=== PATIENT | male | born 1985 | race Caucasian/White ===

== ENCOUNTER 2019-06-12 23:15 | Emergency (ER) ==
[2019-06-12] MEDS ORDERED: ASPIRIN 81 MG TABLET, CHEWABLE PO ONE (23:31)
[2019-06-12 23:42] LABS: ABSOLUTE BASOPHILS # (AUTO) 0.1 10^3/uL (0.0-0.2); ABSOLUTE EOSINOPHILS # (AUTO) 0.3 10^3/uL (0.0-0.6); ABSOLUTE LYMPHOCYTES (AUTO) 5.2 10^3/uL (0.5-4.7); ABSOLUTE MONOCYTES (AUTO) 1.5 10^3/uL (0.1-1.4); ABSOLUTE NEUT (AUTO) 5.4 10^3/uL (1.7-8.2); BASOPHILS % (AUTO) 1.1 % (0-2); EOSINOPHILS % (AUTO) 2.1 % (0-6); HEMATOCRIT 53.7 % (37.9-51.0); HEMOGLOBIN 18.1 g/dL (13.5-17.0); LYMPHOCYTES % (AUTO) 41.8 % (13-45); MEAN CORPUSCULAR HEMOGLOBIN 34.6 pg (27.0-33.4); MEAN CORPUSCULAR HGB CONC 33.7 g/dL (32.0-36.0); MEAN CORPUSCULAR VOLUME 103 fl (80-97); MONOCYTES % (AUTO) 11.7 % (3-13); PLATELET COUNT 363 10^3/uL (150-450); RED BLOOD COUNT 5.24 10^6/uL (4.35-5.55); RED CELL DISTRIBUTION WIDTH 18.6 % (11.5-14.0); SEGMENTED NEUTROPHILS % (AUTO) 43.3 % (42-78); TOTAL CELLS COUNTED % (AUTO) 100 %; WHITE BLOOD COUNT 12.4 10^3/uL (4.0-10.5)
[2019-06-12 23:56] LABS: ALBUMIN 4.4 g/dL (3.5-5.0); ALKALINE PHOSPHATASE 127 U/L (38-126); ANION GAP 14 (5-19); ASPARTATE AMINO TRANSFERASE 117 U/L (17-59); CALCIUM 9.1 mg/dL (8.4-10.2); CARBON DIOXIDE 21 mmol/L (22-30); CHLORIDE 108 mmol/L (98-107); CREATINE KINASE 207 U/L (55-170); GLUCOSE 194 mg/dL (75-110); POTASSIUM 4.2 mmol/L (3.6-5.0); TOTAL PROTEIN 7.5 g/dL (6.3-8.2)
[2019-06-13 00:07] LABS: BILIRUBIN,DIRECT 0.4 mg/dL (0.0-0.4); BILIRUBIN,TOTAL 0.4 mg/dL (0.2-1.3); CREATINE KINASE MB 0.51 ng/mL (<4.55); NEONATAL BILIRUBIN RESULT 0.1 mg/dL (0.1-1.1)
[2019-06-13 00:08] LABS: BLOOD UREA NITROGEN < 2 mg/dL (7-20)
[2019-06-13 00:09] LABS: TROPONIN I < 0.012 ng/mL
--- NOTE | 2019-06-13 07:59 | EKG REPORT ---
SEVERITY:- OTHERWISE NORMAL ECG - SINUS TACHYCARDIA : Confirmed by: Jensen Santacruz MD 13-Jun-2019 07:58:26
== END 2019-06-13 00:24 | disposition left against medical advice (07) ==
LOC: ER 23:15
DX: Z53.21 Procedure and treatment not carried out due to patient leaving prior to being seen by health care provider (principal)
CPT/HCPCS: 36415; 80053; 82550; 82553; 84484; 85025

== ENCOUNTER 2019-06-13 11:12 | Emergency (ER) | payer OTHER, BC ==
--- NOTE | 2019-06-13 12:08 | ER Document Report ---
ED Medical Screen (RME) - General Chief Complaint: Chest Wall Injury Stated Complaint: CHEST PAIN Time Seen by Provider: 06/13/19 11:29 Primary Care Provider: LORENZO BABCOCK PA-C [Primary Care Provider] - Follow up as needed Mode of Arrival: Ambulatory Information source: Patient Notes: This 34-year-old male presents to the emergency department with right-sided rib pain for the past 4 days. Patient reports he slipped in his garage and fell on his right side. Reports pain since that time. Heart rate is in the 120s patient is obviously hurting with difficulty breathing. Denies fever vomiting. Denies past medical history of any injury to the rib. I have greeted and performed a rapid initial assessment of this patient. A comprehensive ED assessment and evaluation of the patient, analysis of test results and completion of the medical decision making process will be conducted by additional ED providers. Dictation of this chart was performed using voice recognition software; therefore, there may be some unintended grammatical errors. TRAVEL OUTSIDE OF THE [place] IN LAST 30 DAYS: No - Related Data Allergies/Adverse Reactions: sertraline [From Zoloft] Allergy (Verified 06/13/19 11:13) Physical Exam - Vital signs Vitals: Temp Pulse Resp BP Pulse Ox 97.9 F 122 H 18 154/106 H 95 06/13/19 11:17 06/13/19 11:17 06/13/19 11:17 06/13/19 11:17 06/13/19 11:17 Course - Vital Signs Vital signs: Temp Pulse Resp BP Pulse Ox 97.9 F 118 H 16 137/99 H 95 06/13/19 12:08 06/13/19 12:08 06/13/19 13:01 06/13/19 13:01 06/13/19 13:01 - Laboratory Result Diagrams: 06/13/19 12:58 06/13/19 12:58 Laboratory results interpreted by me: 06/13/19 06/13/19 12:58 12:58 WBC 11.6 H Hgb 17.4 H Hct 51.2 H MCV 102 H MCH 34.7 H RDW 18.1 H BUN < 2 L Direct Bilirubin 0.5 H AST 107 H Doctor's Discharge - Discharge Referrals: LORENZO BABCOCK PA-C [Primary Care Provider] - Follow up as needed
--- NOTE | 2019-06-13 12:33 | RADIOLOGY REPORT (SQ) ---
EXAM DESCRIPTION: CHEST 2 VIEWS COMPLETED DATE/TIME: 06/13/2019 11:51 am REASON FOR STUDY: diff breathing, rib pain COMPARISON: None. EXAM PARAMETERS: NUMBER OF VIEWS: two views TECHNIQUE: Digital Frontal and Lateral radiographic views of the chest acquired. RADIATION DOSE: NA LIMITATIONS: none FINDINGS: LUNGS AND PLEURA: Right middle lobe collapse and consolidation is present. Superimposed p neumonia could not be excluded. Remainder of the lungs are well inflated and clear. No pleural effusion or pneumothorax. MEDIASTINUM AND HILAR STRUCTURES: No masses or contour abnormalities. HEART AND VASCULAR STRUCTURES: Heart normal size. No evidence for failure. BONES: No acute findings. HARDWARE: None in the chest. OTHER: No other significant finding. IMPRESSION: Right middle lobe collapse and consolidation TECHNICAL DOCUMENTATION: JOB ID: [id number] [employer]- All Rights Reserved Reading location - IP/workstation name: [email or web address]
[2019-06-13] MEDS ORDERED: ONDANSETRON HCL INJ/PF 4 MG/2 ML SDV IV ONE (12:47)
[2019-06-13] MEDS ORDERED: FENTANYL CITRATE INJ/PF 100 MCG/2 ML AMPUL IV ONE (12:47)
--- NOTE | 2019-06-13 12:47 | ER Document Report ---
ED General - General Chief Complaint: Chest Wall Injury Stated Complaint: CHEST PAIN Time Seen by Provider: 06/13/19 11:29 Primary Care Provider: LORENZO BABCOCK PA-C [Primary Care Provider] - Follow up in 3-5 days Mode of Arrival: Ambulatory Notes: Patient is a 34 year old male that presents to the emergency department for chief complaint of right chest wall pain. Patient states that he was in his garage on Monday, and slipped and fell and landed on his right ribs. He states since that time is been having significant pain associated with it, focally located on the right lateral ribs. He denies hitting his head or having any neck injury from his fall. He currently rates his pain as a 10 out of 10 describes as a constant ache that is worse with a deep breath. He denies any other injuries that he is aware of. Denies any pain in his limbs, denies any numbness, tingling or weakness in any extremity. Past Medical History: Hypertension, anxiety, depression Past Surgical History: Denies surgical history Social History: Admits to smoking, and daily alcohol consumption, denies illicit drug use. Family History: Reviewed and noncontributory for presenting illness Allergies: Reviewed, see documented allergy list. REVIEW OF SYSTEMS: Other than noted above, the 12 point review of systems was reviewed with the patient and were negative, all pertinent findings are included in the HPI. PHYSICAL EXAMINATION: Vital signs reviewed, nursing noted reviewed. GENERAL: Well-appearing, well-nourished and in no acute distress. HEAD: Atraumatic, normocephalic. EYES: Eyes appear normal, extraocular movements intact, sclera anicteric, conjunctiva are normal. ENT: nares patent, oropharynx clear without exudates. Moist mucous membranes. NECK: Normal range of motion, supple without lymphadenopathy LUNGs: Mild expiratory wheezing noted throughout all lung wallace, but no acute respiratory distress, there is noted to be right rib tenderness to palpation, without evidence of ecchymosis, step-off, or crepitus noted. HEART: Heart rate tachycardic, regular rhythm, no audible murmur ABDOMEN: Soft, nontender, normoactive bowel sounds. No rebound, guarding, or rigidity. No masses appreciated. EXTREMITIES: Nontender, good range of motion, no pitting or edema. NEUROLOGICAL: No focal neurological deficits. Moves all extremities spontaneously Motor and sensory grossly intact on exam. PSYCH: Normal mood, normal affect. SKIN: Warm, Dry, normal turgor, no rashes or lesions noted on exposed skin TRAVEL OUTSIDE OF THE [place] IN LAST 30 DAYS: No - Related Data Allergies/Adverse Reactions: sertraline [From Zoloft] Allergy (Verified 06/13/19 11:13) Past Medical History - General Information source: Patient - Social History Smoking Status: Current Every Day Smoker Family History: Reviewed & Not Pertinent Patient has suicidal ideation: No Patient has homicidal ideation: No Renal/ Medical History: Denies: Hx Peritoneal Dialysis Physical Exam - Vital signs Vitals: Temp Pulse Resp BP Pulse Ox 97.9 F 122 H 18 154/106 H 95 06/13/19 11:17 06/13/19 11:17 06/13/19 11:17 06/13/19 11:17 06/13/19 11:17 Course - Re-evaluation Re-evalutation: Patient seen and examined vital signs reviewed. Laboratory data and/or imaging were ordered as appropriate for the patient's presenting symptoms and complaint, with consideration of any critical or life threatening conditions that may be associated with their obtained history and exam as noted above. Patient was treated with IV fentanyl, and Zofran, and given DuoNeb breathing treatment Results were reviewed when available and demonstrated chest x-ray demonstrated right-sided infiltrate, but no fracture of the ribs, CT imaging was ordered, to further delineate findings seen on chest x-ray, there was some atelectasis in the right middle lobe, and a right fifth rib fracture, no pneumothorax. Atelectasis could be mild pulmonary contusion, versus strictly atelectasis from decreased deep breathing, over the past several days. Versus developing pneumonia from rib fracture. The patient was re-evaluated and was stable and improved, I feel the patient can be discharged, will send her home on antibiotics, incentive spirometry, given albuterol inhaler, which the patient was agreeable to, he was not hypoxic, no acute respiratory distress, overall appeared much improved. Evaluation was most consistent with right rib fracture, right middle lobe atelectasis Results were discussed with the patient at this point, after careful consideration I feel that that patient can be discharged from the emergency department, the patient was educated treatments and reasons to return to the emergency department based on their presumed diagnosis as noted above, they were advised to followup with a primary care physician in 2-3 days. Patient was agreeable to plan of care. *Note is created using voice recognition software and may contain spelling, syntax or grammatical errors. Laboratory 06/13/19 06/13/19 12:58 12:58 WBC 11.6 H RBC 5.01 Hgb 17.4 H Hct 51.2 H MCV 102 H MCH 34.7 H MCHC 34.0 RDW 18.1 H Plt Count 330 Seg Neutrophils % 57.3 Lymphocytes % 27.7 Monocytes % 12.3 Eosinophils % 1.4 Basophils % 1.3 Absolute Neutrophils 6.7 Absolute Lymphocytes 3.2 Absolute Monocytes 1.4 Absolute Eosinophils 0.2 Absolute Basophils 0.2 Sodium 143.8 Potassium 4.5 Chloride 106 Carbon Dioxide 24 Anion Gap 14 BUN < 2 L Creatinine 0.80 Est GFR ( Amer) > 60 Est GFR (Non-Af Amer) > 60 Glucose 78 Calcium 9.5 Total Bilirubin 0.6 Direct Bilirubin 0.5 H Neonat Total Bilirubin Not Reportable Neonat Direct Bilirubin Not Reportable Neonat Indirect Bili Not Reportable AST 107 H ALT 99 Alkaline Phosphatase 122 Total Protein 7.4 Albumin 4.3 Chest X-Ray 06/13/19 11:33 IMPRESSION: Right middle lobe collapse and consolidation Chest CT 06/13/19 12:47 IMPRESSION: Nondisplaced right anterior-lateral 5th rib fracture. Right middle lobe atelectasis. - Vital Signs Vital signs: Temp Pulse Resp BP Pulse Ox 97.9 F 118 H 21 H 129/93 H 92 06/13/19 12:08 06/13/19 12:08 06/13/19 15:01 06/13/19 15:01 06/13/19 15:01 - Laboratory Result Diagrams: 06/13/19 12:58 06/13/19 12:58 Laboratory results interpreted by me: 06/13/19 06/13/19 12:58 12:58 WBC 11.6 H Hgb 17.4 H Hct 51.2 H MCV 102 H MCH 34.7 H RDW 18.1 H BUN < 2 L Direct Bilirubin 0.5 H AST 107 H Discharge - Discharge Clinical Impression: Right rib fracture Qualifiers: Encounter type: initial encounter Rib fracture type: single rib Fracture type: closed Qualified Code(s): S22.31XA - Fracture of one rib, right side, initial encounter for closed fracture Right pulmonary contusion Qualifiers: Encounter type: initial encounter Qualified Code(s): S27.321A - Contusion of lung, unilateral, initial encounter Condition: Stable Disposition: HOME, SELF-CARE Instructions: Rib Injuries and Fractures ([facility]) Additional Instructions: Please take the entire course of antibiotics as prescribed, starting today, please take the prescribed pain medication only if needed, and the anti- inflammatory twice daily with meals, please use the incentive spirometer, every 10 minutes, throughout the day to help increase breathing, prevent pneumonia, or worsening lung issues. Prescriptions: RX: Doxycycline Hyclate 100 mg PO BID #14 capsule RX: Naproxen [Naprosyn] 500 mg PO BID #30 tablet Oxycodone HCl/Acetaminophen [Percocet 5-325 mg Tablet] 1 tab PO ASDIR PRN #15 tab PRN Reason: rib pain Referrals: LORENZO BABCOCK PA-C [Primary Care Provider] - Follow up in 3-5 days
[2019-06-13 13:29] LABS: ABSOLUTE BASOPHILS # (AUTO) 0.2 10^3/uL (0.0-0.2); ABSOLUTE EOSINOPHILS # (AUTO) 0.2 10^3/uL (0.0-0.6); ABSOLUTE LYMPHOCYTES (AUTO) 3.2 10^3/uL (0.5-4.7); ABSOLUTE MONOCYTES (AUTO) 1.4 10^3/uL (0.1-1.4); ABSOLUTE NEUT (AUTO) 6.7 10^3/uL (1.7-8.2); BASOPHILS % (AUTO) 1.3 % (0-2); EOSINOPHILS % (AUTO) 1.4 % (0-6); HEMATOCRIT 51.2 % (37.9-51.0); HEMOGLOBIN 17.4 g/dL (13.5-17.0); LYMPHOCYTES % (AUTO) 27.7 % (13-45); MEAN CORPUSCULAR HEMOGLOBIN 34.7 pg (27.0-33.4); MEAN CORPUSCULAR VOLUME 102 fl (80-97); MONOCYTES % (AUTO) 12.3 % (3-13); PLATELET COUNT 330 10^3/uL (150-450); RED BLOOD COUNT 5.01 10^6/uL (4.35-5.55); RED CELL DISTRIBUTION WIDTH 18.1 % (11.5-14.0); SEGMENTED NEUTROPHILS % (AUTO) 57.3 % (42-78); TOTAL CELLS COUNTED % (AUTO) 100 %; WHITE BLOOD COUNT 11.6 10^3/uL (4.0-10.5)
[2019-06-13] MEDS ORDERED: IPRATROPIUM/ALBUTEROL 0.5-2.5 MG/3 ML AMPUL NEB ONE (13:29)
[2019-06-13 13:34] LABS: ALBUMIN 4.3 g/dL (3.5-5.0); ALKALINE PHOSPHATASE 122 U/L (38-126); ANION GAP 14 (5-19); ASPARTATE AMINO TRANSFERASE 107 U/L (17-59); BILIRUBIN,DIRECT 0.5 mg/dL (0.0-0.4); BILIRUBIN,TOTAL 0.6 mg/dL (0.2-1.3); BLOOD UREA NITROGEN < 2 mg/dL (7-20); CALCIUM 9.5 mg/dL (8.4-10.2); CARBON DIOXIDE 24 mmol/L (22-30); CHLORIDE 106 mmol/L (98-107); GLUCOSE 78 mg/dL (75-110); POTASSIUM 4.5 mmol/L (3.6-5.0); TOTAL PROTEIN 7.4 g/dL (6.3-8.2)
--- NOTE | 2019-06-13 14:36 | RADIOLOGY REPORT (SQ) ---
EXAM DESCRIPTION: CT CHEST WITH COMPLETED DATE/TIME: 06/13/2019 2:09 pm REASON FOR STUDY: right chest pain, injury COMPARISON: None. TECHNIQUE: CT scan of the chest performed using helical scanning technique with dynamic intravenous contrast injection. Images reviewed with lung, soft tissue and bone windows. Reconstructed coronal and sagittal MPR and MIP images reviewed. All images stored on PACS. All CT scanners at this facility use dose modulation, iterative reconstruction, and/or weight based d osing when appropriate to reduce radiation dose to as low as reasonably achievable (ALARA). [facility]: Dose Right [facility]: CareDose [facility]: Dose Right [facility]: Teradose 4D [facility]: Adelphic Mobile CONTRAST TYPE AND DOSE: contrast/concentration: Isovue 350.00 mg/ml; Total Contrast Delivered: 80.0 ml; Total Saline Delivered: 39.7 ml RENAL FUNCTION: GFR > 60. RADIATION DOSE: CT Rad equipment meets quality standard of care and radiation dose reduction techniq ues were employed. CTDIvol: 14.8 mGy. DLP: 579 mGy-cm. . LIMITATIONS: None. FINDINGS: LUNGS AND PLEURA: Right middle lobe atelectasis. No pneumothorax. No effusions. HILAR AND MEDIASTINAL STRUCTURES: No identified masses or abnormal nodes. HEART AND VASCULAR STRUCTURES: No aneurysm or dissection. No central pulmonary emboli. No pericardi al effusion. HARDWARE: None in the chest. UPPER ABDOMEN: No acute findings. Fatty liver. Small calcified gallstones. Limited exam. THYROID AND OTHER SOFT TISSUES: No masses. No adenopathy. BONES: Nondisplaced right anterior-lateral 5th rib fracture. OTHER: No other significant finding. IMPRESSION: Nondisplaced right anterior-lateral 5th rib fracture. Right middle lobe atelectasis. TECHNICAL DOCUMENTATION: JOB ID: [id number] Quality ID # [id number]: Final reports with documentation of one or more dose reduction techniques (e.g., Au tomated exposure control, adjustment of the mA and/or kV according to patient size, use of iterative reconstruction technique) 2010 [employer]- All Rights Reserved Reading location - IP/workstation name: [email or web address]
[2019-06-13] MEDS ORDERED: ALBUTEROL SULFATE HFA (90 MCG/PUFF) 8 GM MDI (1 MDI/ER DISP) IH ONE (15:13)
[2019-06-13 15:40] VITALS: BP 129/93
== END 2019-06-13 15:46 | disposition home or self-care (01) ==
LOC: ER 11:12
DX: S22.31XA Fracture of one rib, right side, initial encounter for closed fracture (principal); S27.321A Contusion of lung, unilateral, initial encounter; R07.81 Pleurodynia; W01.0XXA Fall on same level from slipping, tripping and stumbling without subsequent striking against object, initial encounter; I10 Essential (primary) hypertension; F17.200 Nicotine dependence, unspecified, uncomplicated
CPT/HCPCS: 94640; 99284; 96374; 96375; 36415; 85025; 80053; 71046; 71260; J3010; J2405; J3490; J7620

== ENCOUNTER 2019-11-24 12:20 | Inpatient (IN) | payer OTHER, BC ==
[2019-11-24] MEDS ORDERED: THIAMINE HCL 100 MG, FOLIC ACID 1 MG in NORMAL SALINE 250 ML IV ONE (12:57)
[2019-11-24] MEDS ORDERED: LORAZEPAM INJ 2 MG/1 ML VIAL IV ONE ×2 (12:57→19:45)
[2019-11-24] MEDS ORDERED: ONDANSETRON HCL INJ/PF 4 MG/2 ML SDV IV ONE (12:57)
[2019-11-24] MEDS ORDERED: NORMAL SALINE 1000 ML 1,000 ML IV ONE (12:57)
--- NOTE | 2019-11-24 13:00 | ER Document Report ---
ED Medical Screen (RME) - General Chief Complaint: Foot Pain Stated Complaint: RIGHT FOOT PAIN Time Seen by Provider: 11/24/19 12:53 Primary Care Provider: LORENZO BABCOCK PA-C [Primary Care Provider] - Follow up as needed TRAVEL OUTSIDE OF THE [place] IN LAST 30 DAYS: No - HPI Notes: 11/24/19 12:57 Patient is a 34-year-old male with history of alcohol dependence presents for 2 concerns. The primary concern today is right ankle and right lateral lower leg pain status post a couple days ago. Patient states that he was on a cupboard and stepped down and injured ankle area. He has had pain and swelling as well as bruising since then. He did not injure any other part of his body. Patient states that he is also an alcoholic who stopped drinking for the past 2 days to try to detox himself, but has had nausea/aches and anxiety associated. He did drink 2 "tall boys" this morning to help try to curb some of the symptoms. Patient is looking for help with this, but does not want to be placed somewhere for detox as he cannot leave his kids. No fever. No chest pain or shortness of breath. I have treated and performed a rapid initial assessment of this patient. A comprehensive ED assessment and evaluation of the patient, analysis of test results and completion of medical decision making process will be conducted by additional ED providers. PHYSICAL EXAMINATION: GENERAL: Well-appearing, well-nourished and in no acute distress. A&Ox4. Answers questions appropriately. Rt ankle: + ecchymosis/swelling/tenderness b/l. + tenderness near fibular head. No foot tenderness noted. N/v intact distal. Psych: anxious Heart: RRR, but tachy Neuro: cranial nerves grossly intact. - Related Data Allergies/Adverse Reactions: sertraline [From Zoloft] Allergy (Verified 11/24/19 12:50) Past Medical History - Past Medical History Cardiac Medical History: Reports: Hx Hypertension Renal/ Medical History: Denies: Hx Peritoneal Dialysis Physical Exam - Vital signs Vitals: Temp Pulse Resp BP Pulse Ox 98.1 F 133 H 18 189/115 H 97 11/24/19 12:28 11/24/19 12:28 11/24/19 12:28 11/24/19 12:28 11/24/19 12:28 Course - Vital Signs Vital signs: Temp Pulse Resp BP Pulse Ox 98.1 F 133 H 18 189/115 H 97 11/24/19 12:28 11/24/19 12:28 11/24/19 12:28 11/24/19 12:28 11/24/19 12:28 Doctor's Discharge - Discharge Referrals: LORENZO BABCCOK PA-C [Primary Care Provider] - Follow up as needed
[2019-11-24 13:31] LABS: ABSOLUTE BASOPHILS # (AUTO) 0.1 10^3/uL (0.0-0.2); ABSOLUTE EOSINOPHILS # (AUTO) 0.1 10^3/uL (0.0-0.6); ABSOLUTE LYMPHOCYTES (AUTO) 1.9 10^3/uL (0.5-4.7); ABSOLUTE MONOCYTES (AUTO) 1.1 10^3/uL (0.1-1.4); ABSOLUTE NEUT (AUTO) 5.9 10^3/uL (1.7-8.2); BASOPHILS % (AUTO) 0.9 % (0-2); EOSINOPHILS % (AUTO) 0.9 % (0-6); HEMATOCRIT 52.4 % (37.9-51.0); HEMOGLOBIN 18.5 g/dL (13.5-17.0); MEAN CORPUSCULAR HEMOGLOBIN 35.7 pg (27.0-33.4); MEAN CORPUSCULAR HGB CONC 35.4 g/dL (32.0-36.0); MEAN CORPUSCULAR VOLUME 101 fl (80-97); RED BLOOD COUNT 5.19 10^6/uL (4.35-5.55); RED CELL DISTRIBUTION WIDTH 16.3 % (11.5-14.0); SEGMENTED NEUTROPHILS % (AUTO) 65.2 % (42-78); TOTAL CELLS COUNTED % (AUTO) 100 %
[2019-11-24 13:32] LABS: APPEARANCE,URINE CLEAR; BILIRUBIN,URINE NEGATIVE (NEGATIVE); COLOR,URINE YELLOW; GLUCOSE, URINE 150 mg/dL (NEGATIVE); KETONES,URINE NEGATIVE (NEGATIVE); LEUKOCYTE ESTERASE,URINE NEGATIVE (NEGATIVE); NITRITE,URINE NEGATIVE (NEGATIVE); PROTEIN,URINE NEGATIVE (NEGATIVE); URINE SPECIFIC GRAVITY 1.002; UROBILINOGEN,URINE NEGATIVE mg/dL (<2.0)
[2019-11-24 13:45] LABS: ALBUMIN 4.2 g/dL (3.5-5.0); ALKALINE PHOSPHATASE 155 U/L (38-126); ANION GAP 16 (5-19); ASPARTATE AMINO TRANSFERASE 232 U/L (17-59); BILIRUBIN,DIRECT 0.9 mg/dL (0.0-0.4); BLOOD UREA NITROGEN 7 mg/dL (7-20); CALCIUM 9.8 mg/dL (8.4-10.2); CARBON DIOXIDE 24 mmol/L (22-30); CHLORIDE 99 mmol/L (98-107); GLUCOSE 152 mg/dL (75-110); TOTAL PROTEIN 7.9 g/dL (6.3-8.2)
[2019-11-24 13:47] LABS: ACETAMINOPHEN < 10 ug/mL (10-30); SALICYLATE < 1.0 mg/dL (2.0-20.0)
[2019-11-24 13:50] LABS: PLATELET COUNT 136 10^3/uL (150-450)
[2019-11-24 13:55] LABS: URINE AMPHETAMINES SCREEN NEGATIVE; URINE BARBITURATES SCREEN NEGATIVE; URINE BENZODIAZEPINES SCREEN NEGATIVE; URINE COCAINE SCREEN NEGATIVE; URINE MARIJUANA (THC) SCREEN NEGATIVE; URINE METHADONE SCREEN NEGATIVE; URINE PHENCYCLIDINE SCREEN NEGATIVE
--- NOTE | 2019-11-24 14:09 | RADIOLOGY REPORT (SQ) ---
EXAM DESCRIPTION: ANKLE RIGHT COMPLETE COMPLETED DATE/TIME: 11/24/2019 1:55 pm REASON FOR STUDY: pain s/p injury, + swelling/ecchymosis b/l COMPARISON: None. NUMBER OF VIEWS: Three views. TECHNIQUE: AP, lateral, and oblique radiographic images acquired of the right ankle. LIMITATIONS: None. FINDINGS: MINERALIZATION: Normal. BONES: Nondisplaced fracture of the medial malleolus. JOINTS: No effusions. SOFT TISSUES: No soft tissue swelling. No foreign body. OTHER: No other significant finding. IMPRESSION: Fracture medial malleolus. TECHNICAL DOCUMENTATION: JOB ID: [id number] [employer]- All Rights Reserved Reading location - IP/workstation name: [email or web address]
--- NOTE | 2019-11-24 14:09 | RADIOLOGY REPORT (SQ) ---
EXAM DESCRIPTION: TIBIA FIBULA RIGHT COMPLETED DATE/TIME: 11/24/2019 1:55 pm REASON FOR STUDY: pain near fibular head COMPARISON: None. NUMBER OF VIEWS: Two views. TECHNIQUE: Two radiographic images acquired of the right tibia and fibula to include the knee and an kle in at least one projection. LIMITATIONS: None. FINDINGS: MINERALIZATION: Normal. BONES: Spiral fracture of the proximal fibular shaft. Nondisplaced fracture of the medial malleolus. SOFT TISSUES: No obvious swelling or foreign body. OTHER: No other significant finding. IMPRESSION: Maisonneuve fracture. TECHNICAL DOCUMENTATION: JOB ID: [id number] [employer]- All Rights Reserved Reading location - IP/workstation name: [email or web address]
[2019-11-24] MEDS: IBUPROFEN 800 MG TABLET PO ONE ×2 (14:11→14:19)
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
[2019-11-24] MEDS ORDERED: TEMAZEPAM 15 MG CAPSULE PO PRN (15:44)
[2019-11-24] MEDS ORDERED: DIAZEPAM INJ 10 MG/2 ML DISP.SYRIN IV PRN (15:49)
[2019-11-24] MEDS: HYDRALAZINE HCL INJ/PF 20 MG/1 ML SDV IV PRN ×2 (16:00→16:35)
--- NOTE | 2019-11-24 16:15 | PDOC H&P ---
History of Present Illness Admission Date/PCP: 11/24/19 15:40 [facility] History of Present Illness: FANG UPTON is a 34 year old male past medical history of PTSD, TBI, hypertension, EtOH and tobacco abuse presenting to ED complaining of right lower extremity pain. Patient is stating about 2 days ago he fell off a ladder ever since he has developed right lower extremity pain swelling and tenderness. Stating that his right knee gave out and he fell, denies any chest pain, palpitation, lightheadedness, before the fall or any syncope, presyncope or convulsions after the fall. Denies sustaining any other trauma besides right lower extremity. Patient has history of severe EtOH abuse and has been admitted to rehab before denies any history of DT or hospitalization for alcohol withdrawal. Currently patient is a daily drinker, drinks multiple "tall boys" a day, and has been drinking excessively ever since hurting his leg. He is also complaining of mild shortness of breath and nausea denies any headache, numbness tingling or any focal neurological deficits, chest pain, abdo tim pain, vomiting, diarrhea, constipation or any urinary symptoms, denies any formication or any auditory or visual hallucinations. In ED he was found to be very hypertensive, dehydrated, with mild elevated LFTs and blood alcohol level of 188. Right lower extremity x-ray showed spiral fracture of mid fibula and medial malleolar fracture. Hospitalist was consulted for admission. Past Medical History Cardiac Medical History: Reports: Hypertension Social History Lives with: Family Smoking Status: Current Every Day Smoker Family History Family History: Reviewed & Not Pertinent Parental Family History Reviewed: Yes Children Family History Reviewed: Yes Sibling(s) Family History Reviewed.: Yes Medication/Allergy Home Medications: Alprazolam 0.25 mg PO DAILYP PRN MDD 0.5 MG 11/24/19 Zolpidem Tartrate [Ambien 5 mg Tablet] 5 mg PO HSP PRN 11/24/19 Allergies/Adverse Reactions: sertraline [From Zoloft] Allergy (Verified 11/24/19 12:50) Review of Systems Review of Systems: as per hpi Physical Exam Vital Signs: Temp Pulse Resp BP Pulse Ox 98.1 F 133 H 20 180/126 H 98 11/24/19 12:28 11/24/19 12:28 11/24/19 13:57 11/24/19 14:00 11/24/19 14:01 Intake & Output 11/23/19 11/24/19 11/25/19 06:59 06:59 06:59 Weight 99.5 kg General appearance: PRESENT: mild distress, obese, well-developed, well- nourished Respiratory exam: PRESENT: prolonged expiratory phas, wheezes. ABSENT: rales, rhonchi Cardiovascular exam: PRESENT: RRR. ABSENT: diastolic murmur, rubs, systolic murmur GI/Abdominal exam: PRESENT: normal bowel sounds, soft. ABSENT: distended, guarding, mass, organolmegaly, rebound, tenderness Musculoskeletal exam: PRESENT: tenderness - Right lower extremity below the knee diffuse swelling, ecchymosis over the medial malleolus, exquisitely tender below the knee to the ankle, vascularly intact. Neurological exam: PRESENT: alert, awake, oriented to person, oriented to place, oriented to time, oriented to situation, CN II-XII grossly intact. ABSENT: motor sensory deficit Psychiatric exam: PRESENT: anxious, appropriate affect Results Laboratory Results: 11/24/19 13:13 11/24/19 13:13 11/24/19 11/24/19 11/24/19 13:13 13:13 13:13 WBC 9.0 RBC 5.19 Hgb 18.5 H Hct 52.4 H MCV 101 H MCH 35.7 H MCHC 35.4 RDW 16.3 H Plt Count 136 L Seg Neutrophils % 65.2 Sodium 138.9 Potassium 4.0 Chloride 99 Carbon Dioxide 24 Anion Gap 16 BUN 7 Creatinine 0.88 Est GFR ( Amer) > 60 Glucose 152 H Calcium 9.8 Total Bilirubin 3.0 H AST 232 H Alkaline Phosphatase 155 H Total Protein 7.9 Albumin 4.2 Urine Color YELLOW Urine Appearance CLEAR Urine pH 6.0 Ur Specific [place] 1.002 Urine Protein NEGATIVE Urine Glucose (UA) 150 H Urine Ketones NEGATIVE Urine Blood NEGATIVE Urine Nitrite NEGATIVE Ur Leukocyte Esterase NEGATIVE Urine RBC (Auto) 0 Impressions: Ankle X-Ray 11/24/19 12:56 IMPRESSION: Fracture medial malleolus. Tibia/Fibula X-Ray 11/24/19 12:56 IMPRESSION: Maisonneuve fracture. Assessment and Plan - Diagnosis (1) Alcohol withdrawal Qualifiers: Complication of substance-induced condition: uncomplicated Qualified Code(s): F10.230 - Alcohol dependence with withdrawal, uncomplicated Is this a current diagnosis for this admission?: Yes Plan: CIWA score of 14. EtOH level 188. Patient very anxious tachypneic, hypertensive and tachycardic. Does not seem to be in DT at the moment. Admit to IMCU, seizure, fall, aspiration precautions. Scheduled and PRN benzodiazepines. Folic acid and thiamine supplementation. (2) Hypertension Is this a current diagnosis for this admission?: Yes Plan: Untreated hypertension. Presenting with systolic BP of 180s. History of untreated hypertension. Likely exacerbated due to active alcohol withdrawal. Admit to telemetry, PRN IV hydralazine and metoprolol. Restart home meds. Dismissed as needed. Outpatient PCP follow-up. (3) PTSD (post-traumatic stress disorder) Is this a current diagnosis for this admission?: Yes Plan: Denies any suicidal homicidal ideation. Supportive measures. Psychiatry consulted. Pending recommendations. (4) TBI (traumatic brain injury) Qualifiers: Encounter type: initial encounter Is this a current diagnosis for this admission?: Yes Plan: Supportive measures. (5) Tobacco abuse Is this a current diagnosis for this admission?: Yes Plan: Counseled on quitting. NicoDerm patch provided. (6) COPD (chronic obstructive pulmonary disease) Is this a current diagnosis for this admission?: Yes Plan: Current heavy smoker. Non-oxygen dependent. Expiratory wheezing on physical examination. Supplemental oxygen, duo nebs, LABA, LABA. Outpatient PCP and pulmonology follow-up. (7) Obesity Qualifiers: Obesity classification: adult class 1 (BMI 30 - 34.9) Is this a current diagnosis for this admission?: Yes Plan: Diet and lifestyle modification recommended. Will check TSH. (8) Elevated liver enzymes Is this a current diagnosis for this admission?: Yes Plan: Denies any history of hepatitis. This is likely to EtOH abuse. Platelets 136, AST 232, ALT 135, alkaline phosphatase 155. Not sure if patient has underlying cirrhosis or hepatic steatosis. We will check on her. Obtain hepatitis panel. Right upper quadrant ultrasound. Liver chemistries tomorrow. Monitor for bleeding. (9) Tibia/fibula fracture Qualifiers: Encounter type: initial encounter Is this a current diagnosis for this admission?: Yes Plan: Traumatic fracture. Neurovascularly intact. Supportive measures. Orthopedic surgery consulted.
[2019-11-24] MEDS: THIAMINE HCL 100 MG TABLET PO SCH (16:34)
[2019-11-24] MEDS: FOLIC ACID 1 MG TABLET PO SCH (16:34)
[2019-11-24 17:09] LABS: FREE T4 (FREE THYROXINE) 0.97 ng/dL (0.78-2.19)
[2019-11-24 17:23] LABS: THYROID STIMULATING HORMONE 1.39 uIU/mL (0.47-4.68)
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
[2019-11-24] MEDS ORDERED: NORMAL SALINE 1000 ML 1,000 ML with POTASSIUM CHLORIDE 20 MEQ, MAGNESIUM SULFATE 8 MEQ,... IV SCH ×5 (18:00)
[2019-11-24] MEDS: LEVALBUTEROL HCL NEB 0.63 MG/3 ML AMPUL NEB SCH ×2 (18:23→20:35)
--- NOTE | 2019-11-24 18:32 | EKG REPORT ---
SEVERITY:- BORDERLINE ECG - SINUS TACHYCARDIA PROBABLE LEFT ATRIAL ABNORMALITY : Confirmed by: Alena Donnelly MD 24-Nov-2019 18:32:11
--- NOTE | 2019-11-24 18:52 | PDOC CONSULTATION ---
Consultation Consult Date: 11/24/19 Provider Consulted: EMMIE KELLY JR History of Present Illness Admission Date/PCP: 11/24/19 15:40 [facility] History of Present Illness: FANG UPTON is a 34 year old male who fell off of a ladder 2 days ago twisting his right ankle and resulting in severe pain and inability to ambulate and subsequently presented to the emergency department where he was diagnosed with a ankle fracture. Additionally he is having symptoms of withdrawal from alcohol abuse and was admitted to the hospitalist service for medical management. He reports the pain in the ankle is a 6 out of 10, worse with any motion, improved with rest, improved with pain medication. Pain is aching in nature, he denies associated injury. He denies head injury or loss of consciousness. He denies lower extremity neurologic symptoms including sensation or motor loss. Past Medical History Cardiac Medical History: Reports: Hyperlipidema, Hypertension Pulmonary Medical History: Reports: Pneumonia Psychiatric Medical History: Reports: Alcohol Dependency, Depression Social History Lives with: Family Smoking Status: Current Every Day Smoker Cigarettes Packs Per Day: 1 Electronic Cigarette use?: No Number of Years Smokin Last Time Smoked: today Frequency of Alcohol Use: Heavy Hx Recreational Drug Use: Yes Drugs: Marijuana Hx Prescription Drug Abuse: Yes - Advance Directive Resuscitation Status: Full Code Family History Family History: Reviewed & Not Pertinent Parental Family History Reviewed: No Children Family History Reviewed: NA Sibling(s) Family History Reviewed.: NA Medication/Allergy Home Medications: Alprazolam 0.25 mg PO DAILYP PRN MDD 0.5 MG 11/24/19 Amlodipine 11/24/19 Hctz 11/24/19 Zolpidem Tartrate [Ambien 5 mg Tablet] 5 mg PO HSP PRN 11/24/19 Allergies/Adverse Reactions: sertraline [From Zoloft] Allergy (Verified 11/24/19 12:50) Review of Systems Review of Systems: Constitutional: ABSENT: anorexia, positive: Chills, rigors, malaise Cardiovascular: ABSENT: chest pain Respiratory: ABSENT: dyspnea Gastrointestinal: ABSENT: vomiting Genitourinary: ABSENT: dysuria Integumentary: ABSENT: rash Neurological: ABSENT: confusion, memory loss, numbness Psychiatric: ABSENT: hallucinations Hematologic/Lymphatic: ABSENT: easy bleeding All negative as above aside from that reported in the HPI and the following: Right ankle pain, pain also at the proximal lateral knee. Physical Exam Vital Signs: Temp Pulse Resp BP Pulse Ox 98.1 F 133 H 16 160/106 H 98 11/24/19 12:28 11/24/19 12:28 11/24/19 17:01 11/24/19 17:00 11/24/19 17:01 Intake & Output 11/23/19 11/24/19 11/25/19 06:59 06:59 06:59 Intake Total 1251.2 Balance 1251.2 Weight 99.5 kg Physical Exam: General appearance: PRESENT: no acute distress, cooperative, well-nourished, flushed in appearance, mild tremor present. Head exam: PRESENT: atraumatic, normocephalic Eye exam: PRESENT: EOMI Ear exam: PRESENT: normal external ear exam Mouth exam: PRESENT: neck supple Neck exam: ABSENT: tracheal deviation Respiratory exam: PRESENT: symmetrical, unlabored. ABSENT: accessory muscle use, wheezes Pulses: PRESENT: normal radial pulses, normal dorsalis pedis pulse Vascular exam: PRESENT: normal capillary refill GI/Abdominal exam: ABSENT: distended, firm Extremities exam: PRESENT: full ROM of bilateral shoulders, elbows wrists, knees, hips and ankles without pain Musculoskeletal exam: PRESENT: full ROM, normal inspection of all 4 extremities aside from that noted below. Neurological exam: PRESENT: alert, awake, oriented to person, oriented to place, oriented to time Psychiatric exam: PRESENT: appropriate affect. ABSENT: agitated Focused psych exam: ABSENT: catatonic Skin exam: PRESENT: intact, diaphoretic All as above aside from that noted in the HPI and the following: Right lower extremity -Pulses 2+ distally -Compartments soft -Right lower extremity in a posterior splint -Sensation grossly intact to L3-4-5 S1 -Motor grossly intact to EHL TA, and quad Results Laboratory Results: 11/24/19 13:13 11/24/19 13:13 11/24/19 11/24/19 11/24/19 13:13 13:13 13:13 WBC 9.0 RBC 5.19 Hgb 18.5 H Hct 52.4 H MCV 101 H MCH 35.7 H MCHC 35.4 RDW 16.3 H Plt Count 136 L Seg Neutrophils % 65.2 Sodium 138.9 Potassium 4.0 Chloride 99 Carbon Dioxide 24 Anion Gap 16 BUN 7 Creatinine 0.88 Est GFR ( Amer) > 60 Glucose 152 H Calcium 9.8 Total Bilirubin 3.0 H AST 232 H Alkaline Phosphatase 155 H Total Protein 7.9 Albumin 4.2 TSH Free T4 Urine Color YELLOW Urine Appearance CLEAR Urine pH 6.0 Ur Specific [place] 1.002 Urine Protein NEGATIVE Urine Glucose (UA) 150 H Urine Ketones NEGATIVE Urine Blood NEGATIVE Urine Nitrite NEGATIVE Ur Leukocyte Esterase NEGATIVE Urine RBC (Auto) 0 11/24/19 13:13 WBC RBC Hgb Hct MCV MCH MCHC RDW Plt Count Seg Neutrophils % Sodium Potassium Chloride Carbon Dioxide Anion Gap BUN Creatinine Est GFR ( Amer) Glucose Calcium Total Bilirubin AST Alkaline Phosphatase Total Protein Albumin TSH 1.39 Free T4 0.97 Urine Color Urine Appearance Urine pH Ur Specific [place] Urine Protein Urine Glucose (UA) Urine Ketones Urine Blood Urine Nitrite Ur Leukocyte Esterase Urine RBC (Auto) Impressions: Ankle X-Ray 11/24/19 12:56 IMPRESSION: Fracture medial malleolus. Tibia/Fibula X-Ray 11/24/19 12:56 IMPRESSION: Maisonneuve fracture. Assessment & Plan - Diagnosis (1) Bimalleolar fracture of right ankle Plan: Patient is a 34-year-old male who has a bimalleolar ankle fracture consisting of a posterior and medial malleolus fracture, with a potential associated syndesmotic injury given the high fibula fracture. -At this time the ankle is well positioned within the mortise, the fracture frag ments are small enough that surgical intervention may not be able to capture and reliably hold fixation. -He is currently in a well positioned posterior splint, we will see him in the office as soon as possible after he is discharged and placed a well molded splint to allow for healing of the right ankle. -Nonweightbearing right lower extremity until further evaluation in the office. -I would like to follow the patient my office within the next [address] [place] [address]. in [place] office #: [phone]
[2019-11-24] MEDS ORDERED: INFLUENZA QUAD (6MOS+) 2019-20 VAC 0.5 ML SYR IM ONE (19:01)
[2019-11-24] MEDS: MORPHINE SULFATE 10 MG/ML INJ IV PRN (19:55)
--- NOTE | 2019-11-24 20:06 | RADIOLOGY REPORT (SQ) ---
EXAM DESCRIPTION: U/S ABDOMEN COMPLETE W/O DOP COMPLETED DATE/TIME: 11/24/2019 6:20 pm REASON FOR STUDY: Hx EtoH abuse, elevated LFTs COMPARISON: None. TECHNIQUE: Dynamic and static grayscale images acquired of the abdomen and recorded on PACS. Additio nal selected color Doppler and spectral images recorded. Note: Exam does not meet criteria for a complete doppler/duplex scan LIMITATIONS: Study limited due to acoustical interference from fat or from air in the bowel. FINDINGS: PANCREAS: Poorly seen secondary to acoustical interference from fat or from air in the bow el. No visualized masses. Duct normal caliber as seen. LIVER: Echotexture is coarse with increased echogenicity consistent with fatty infiltration. Mildly enlarged measuring 19.7 cm in the midclavicular line. LIVER VASCULATURE: Normal directional flow of the main portal vein and hepatic veins. GALLBLADDER: No stones. Normal wall thickness. No pericholecystic fluid. ULTRASOUND-DETECTED CHAVEZ'S SIGN: Negative. INTRAHEPATIC DUCTS AND COMMON DUCT: CBD and intrahepatic ducts normal caliber. No filling defects. INFERIOR VENA CAVA: Normal flow. AORTA: No aneurysm identified.Poorly seen secondary to acoustical interference from fat or from air i n the bowel. RIGHT KIDNEY: Normal size. Normal echogenicity. No solid or suspicious masses. No hydronephrosis. No shadowing stones. LEFT KIDNEY: Normal size. Normal echogenicity. No solid or suspicious masses. No hydronephrosis. No shadowing stones. SPLEEN:Normal size. No solid masses. PERITONEAL AND PLEURAL SPACES: No ascites or effusions. OTHER: No other significant finding. IMPRESSION: FATTY INFILTRATION OF THE LIVER. Mild hepatomegaly. No acute findings otherwise. TECHNICAL DOCUMENTATION: JOB ID: [id number] 2010 [employer]- All Rights Reserved Reading location - IP/workstation name: [email or web address]
[2019-11-24] MEDS: IPRATROPIUM BROMIDE 0.02% NEB 0.5 MG/2.5 ML AMPUL NEB SCH (20:34)
[2019-11-24] MEDS: TRAZODONE HCL 50 MG TABLET PO SCH (22:08)
[2019-11-24] MEDS: BUSPIRONE HCL 10 MG TABLET PO SCH (22:08)
[2019-11-24] MEDS: DIAZEPAM INJ 10 MG/2 ML DISP.SYRIN IV SCH (22:09)
[2019-11-24] MEDS: VENLAFAXINE HCL 37.5 MG CAP.SR.24H PO SCH (22:09)
[2019-11-24] MEDS ORDERED: HEPARIN SOD (PORCINE) 5,000 UNIT/ML 1 ML VIAL ONE (22:12)
[2019-11-24] MEDS: PANTOPRAZOLE SODIUM 40 MG TABLET.DR PO SCH (22:15)
[2019-11-24] MEDS ORDERED: DIAZEPAM INJ 10 MG/2 ML DISP.SYRIN IV ONE (22:45)
[2019-11-24] MEDS ORDERED: NICOTINE 7 MG/24 HR PATCH.TD24 TD ONE (22:45)
[2019-11-25] MEDS: LEVALBUTEROL HCL NEB 0.63 MG/3 ML AMPUL NEB SCH ×6 (00:02→20:30)
[2019-11-25] MEDS: MORPHINE SULFATE 10 MG/ML INJ IV PRN ×6 (00:06→22:46)
[2019-11-25] MEDS: DEXTROSE 5%-NORMAL SALINE 1,000 ML IV PRN ×4 (00:07→22:46)
[2019-11-25] MEDS: LORAZEPAM INJ 2 MG/1 ML VIAL IV PRN ×2 (01:57→20:53)
[2019-11-25] MEDS: ONDANSETRON HCL INJ/PF 4 MG/2 ML SDV IV PRN ×3 (05:17→13:40)
[2019-11-25] MEDS: HEPARIN SOD (PORCINE) 5,000 UNIT/ML 1 ML VIAL SUBCUT SCH ×3 (05:18→22:11)
[2019-11-25] MEDS: PANTOPRAZOLE SODIUM 40 MG TABLET.DR PO SCH ×2 (05:19→16:33)
[2019-11-25] MEDS ORDERED: DIAZEPAM INJ 10 MG/2 ML DISP.SYRIN IV ONE (05:30)
[2019-11-25] MEDS ORDERED: LORAZEPAM INJ 2 MG/1 ML VIAL IV ONE (05:30)
[2019-11-25 05:48] LABS: ABSOLUTE EOSINOPHILS # (AUTO) 0.3 10^3/uL (0.0-0.6); ABSOLUTE LYMPHOCYTES (AUTO) 2.1 10^3/uL (0.5-4.7); ABSOLUTE MONOCYTES (AUTO) 0.6 10^3/uL (0.1-1.4); ABSOLUTE NEUT (AUTO) 3.2 10^3/uL (1.7-8.2); BASOPHILS % (AUTO) 0.5 % (0-2); EOSINOPHILS % (AUTO) 5.4 % (0-6); HEMATOCRIT 47.2 % (37.9-51.0); MEAN CORPUSCULAR HEMOGLOBIN 35.7 pg (27.0-33.4); MEAN CORPUSCULAR HGB CONC 34.7 g/dL (32.0-36.0); MEAN CORPUSCULAR VOLUME 103 fl (80-97); MONOCYTES % (AUTO) 9.5 % (3-13); PLATELET COUNT 110 10^3/uL (150-450); RED BLOOD COUNT 4.59 10^6/uL (4.35-5.55); RED CELL DISTRIBUTION WIDTH 16.5 % (11.5-14.0); SEGMENTED NEUTROPHILS % (AUTO) 50.6 % (42-78); TOTAL CELLS COUNTED % (AUTO) 100 %; WHITE BLOOD COUNT 6.3 10^3/uL (4.0-10.5)
[2019-11-25 05:49] LABS: HEMOGLOBIN 16.4 g/dL (13.5-17.0)
[2019-11-25 06:05] LABS: ALBUMIN 3.2 g/dL (3.5-5.0); ALKALINE PHOSPHATASE 111 U/L (38-126); ANION GAP 8 (5-19); ASPARTATE AMINO TRANSFERASE 146 U/L (17-59); BILIRUBIN,DIRECT 1.1 mg/dL (0.0-0.4); BILIRUBIN,TOTAL 2.8 mg/dL (0.2-1.3); BLOOD UREA NITROGEN 5 mg/dL (7-20); CALCIUM 8.4 mg/dL (8.4-10.2); CARBON DIOXIDE 28 mmol/L (22-30); CHLORIDE 103 mmol/L (98-107); GLUCOSE 115 mg/dL (75-110); POTASSIUM 3.4 mmol/L (3.6-5.0); TOTAL PROTEIN 6.4 g/dL (6.3-8.2)
[2019-11-25] MEDS: DIAZEPAM INJ 10 MG/2 ML DISP.SYRIN IV SCH ×3 (06:14→22:14)
[2019-11-25] MEDS: IPRATROPIUM BROMIDE 0.02% NEB 0.5 MG/2.5 ML AMPUL NEB SCH ×3 (07:31→20:30)
[2019-11-25] MEDS ORDERED: POTASSIUM CHLORIDE 10 MEQ TABLET.ER PO ONE (07:36)
[2019-11-25] MEDS: OXYCODONE-ACETAMINOPHEN 5-325 MG TABLET PO PRN ×2 (08:17→20:51)
[2019-11-25] MEDS: HYDRALAZINE HCL INJ/PF 20 MG/1 ML SDV IV PRN ×3 (08:20→20:52)
[2019-11-25] MEDS ORDERED: LEVALBUTEROL HCL NEB 0.63 MG/3 ML AMPUL NEB PRN (08:31)
[2019-11-25] MEDS: FOLIC ACID 1 MG TABLET PO SCH (09:39)
[2019-11-25] MEDS: BUSPIRONE HCL 10 MG TABLET PO SCH ×2 (09:39→22:09)
[2019-11-25] MEDS: LISINOPRIL 5 MG TABLET PO SCH (09:39)
[2019-11-25] MEDS: THIAMINE HCL 100 MG TABLET PO SCH (09:40)
[2019-11-25] MEDS: PREDNISONE 20 MG TABLET PO SCH (09:40)
[2019-11-25] MEDS: VENLAFAXINE HCL 37.5 MG CAP.SR.24H PO SCH ×2 (09:40→22:09)
[2019-11-25] MEDS: NICOTINE 7 MG/24 HR PATCH.TD24 TD SCH (09:40)
--- NOTE | 2019-11-25 09:51 | PDOC PROGRESS REPORT ---
Subjective Progress Note for:: 11/25/19 Subjective:: FANG UPTON is a 34 year old male past medical history of PTSD, TBI, hypertension, EtOH and tobacco abuse presenting to ED complaining of right lower extremity pain. Patient is stating about 2 days ago he fell off a ladder ever since he has developed right lower extremity pain swelling and tenderness. Stating that his right knee gave out and he fell, denies any chest pain, palpitation, lightheadedness, before the fall or any syncope, presyncope or convulsions after the fall. Denies sustaining any other trauma besides right lower extremity. Patient has history of severe EtOH abuse and has been admitted to rehab before denies any history of DT or hospitalization for alcohol withdrawal. Currently patient is a daily drinker, drinks multiple "tall boys" a day, and has been drinking excessively ever since hurting his leg. He is also complaining of mild shortness of breath and nausea denies any headache, numbness tingling or any focal neurological deficits, chest pain, abdominal pain, vomiting, diarrhea, constipation or any urinary symptoms, denies any formication or any auditory or visual hallucinations. In ED he was found to be very hypertensive, dehydrated, with mild elevated LFTs and blood alcohol level of 188. Right lower extremity x-ray showed spiral fracture of mid fibula and medial malleolar fracture. Hospitalist was consulted for admission. 11/25/2019. Overnight patient had received extra dose of benzodiazepine as he was very anxious otherwise no acute events overnight, this morning patient is enjoying his breakfast appear to be very anxious otherwise denies any fever, chills, nausea, vomiting, diarrhea, constipation or any urinary symptoms. Denies any visual or auditory hallucinations. Reason For Visit: ALCOHL INTOXICATION RIGHT LOWER EXTREMITY FRACTURE Physical Exam Vital Signs: Temp Pulse Resp BP Pulse Ox 98.1 F 82 16 160/104 H 100 11/25/19 07:43 11/25/19 07:43 11/25/19 07:43 11/25/19 07:43 11/25/19 07:43 Intake & Output 11/24/19 11/25/19 11/26/19 06:59 06:59 06:59 Intake Total 2901.2 1023 Output Total 1900 Balance 1001.2 1023 Weight 101.3 kg General appearance: PRESENT: obese Head exam: PRESENT: atraumatic, normocephalic Respiratory exam: PRESENT: prolonged expiratory phas, wheezes. ABSENT: rales, rhonchi Cardiovascular exam: PRESENT: RRR. ABSENT: diastolic murmur, rubs, systolic murmur GI/Abdominal exam: PRESENT: normal bowel sounds, soft. ABSENT: distended, guarding, mass, organolmegaly, rebound, tenderness Neurological exam: PRESENT: alert, awake, oriented to person, oriented to place, oriented to time, oriented to situation, CN II-XII grossly intact. ABSENT: motor sensory deficit Psychiatric exam: PRESENT: anxious Results Laboratory Results: 11/25/19 03:58 11/25/19 03:58 11/24/19 11/24/19 11/24/19 13:13 13:13 13:13 WBC 9.0 RBC 5.19 Hgb 18.5 H Hct 52.4 H MCV 101 H MCH 35.7 H MCHC 35.4 RDW 16.3 H Plt Count 136 L Seg Neutrophils % 65.2 Sodium 138.9 Potassium 4.0 Chloride 99 Carbon Dioxide 24 Anion Gap 16 BUN 7 Creatinine 0.88 Est GFR ( Amer) > 60 Glucose 152 H Calcium 9.8 Magnesium Total Bilirubin 3.0 H AST 232 H Alkaline Phosphatase 155 H Total Protein 7.9 Albumin 4.2 TSH Free T4 Urine Color YELLOW Urine Appearance CLEAR Urine pH 6.0 Ur Specific [employer] 1.002 Urine Protein NEGATIVE Urine Glucose (UA) 150 H Urine Ketones NEGATIVE Urine Blood NEGATIVE Urine Nitrite NEGATIVE Ur Leukocyte Esterase NEGATIVE Urine RBC (Auto) 0 11/24/19 11/25/19 11/25/19 13:13 03:58 03:58 WBC 6.3 RBC 4.59 Hgb 16.4 D Hct 47.2 MCV 103 H MCH 35.7 H MCHC 34.7 RDW 16.5 H Plt Count 110 L Seg Neutrophils % 50.6 Sodium 138.5 Potassium 3.4 L Chloride 103 Carbon Dioxide 28 Anion Gap 8 BUN 5 L Creatinine 0.77 Est GFR ( Amer) > 60 Glucose 115 H Calcium 8.4 Magnesium 2.0 Total Bilirubin 2.8 H AST 146 H Alkaline Phosphatase 111 Total Protein 6.4 Albumin 3.2 L TSH 1.39 Free T4 0.97 Urine Color Urine Appearance Urine pH Ur Specific [employer] Urine Protein Urine Glucose (UA) Urine Ketones Urine Blood Urine Nitrite Ur Leukocyte Esterase Urine RBC (Auto) Impressions: Ankle X-Ray 11/24/19 12:56 IMPRESSION: Fracture medial malleolus. Tibia/Fibula X-Ray 11/24/19 12:56 IMPRESSION: Maisonneuve fracture. Abdomen Ultrasound 11/24/19 16:16 IMPRESSION: FATTY INFILTRATION OF THE LIVER. Mild hepatomegaly. No acute findings otherwise. Assessment and Plan - Diagnosis (1) Alcohol withdrawal Qualifiers: Complication of substance-induced condition: uncomplicated Qualified Code(s): F10.230 - Alcohol dependence with withdrawal, uncomplicated Is this a current diagnosis for this admission?: Yes Plan: Appears very anxious denies any visual or also hallucination, alert and oriented x4. EtOH level 188 admission. Continue telemetry seizure, fall, aspiration precautions. Scheduled and PRN benzodiazepines. Folic acid and thiamine supplementation. (2) Hypertension Is this a current diagnosis for this admission?: Yes Plan: Improving, not optimized. Euvolemic. Untreated hypertension. Presenting with systolic BP of 180s. History of untreated hypertension. Likely exacerbated due to active alcohol withdrawal. Continue p.o. lisinopril PRN IV hydralazine and metoprolol. Adjust meds as needed. Outpatient PCP follow-up. Note: Patient also started on clonidine nightly as per psychiatry recommendation which will also help his blood pressure. (3) PTSD (post-traumatic stress disorder) Is this a current diagnosis for this admission?: Yes Plan: Denies any suicidal homicidal ideation. Supportive measures. Psychiatry consulted. Recommendations noted. Please refer to note. Has been started on the following medication as per psychiatry recommendation. BuSpar 5 mg p.o. twice daily. Clonidine 0.2 mg p.o. nightly. Trazodone 50 mg p.o. nightly. Effexor 37.5 mg p.o. twice daily. DC Xanax. DC Ambien. Patient is to be weaned off of benzodiazepines and opiates once acute alcohol withdrawal resolved and right lower extremity pain is manageable on non-opioids. (4) TBI (traumatic brain injury) Qualifiers: Encounter type: initial encounter Is this a current diagnosis for this admission?: Yes Plan: as above (5) Tobacco abuse Is this a current diagnosis for this admission?: Yes Plan: Counseled on quitting. NicoDerm patch provided. (6) COPD (chronic obstructive pulmonary disease) Qualifiers: COPD type: COPD with acute exacerbation Qualified Code(s): J44.1 - Chronic obstructive pulmonary disease with (acute) exacerbation Is this a current diagnosis for this admission?: Yes Plan: Current heavy smoker. Non-oxygen dependent. Significant wheezing on physical examination. Continue supplemental oxygen, duo nebs, LABA, LABA and p.o. steroids. Outpatient PCP and pulmonology follow-up. (7) Obesity Qualifiers: Obesity classification: adult class 1 (BMI 30 - 34.9) Is this a current diagnosis for this admission?: Yes Plan: Diet and lifestyle modification recommended. TSH and free T4 WNL. (8) Elevated liver enzymes Is this a current diagnosis for this admission?: Yes Plan: Denies any history of hepatitis. This is likely to EtOH abuse. Platelets 136, AST 232, ALT 135, alkaline phosphatase 155 on admission. Abdominal ultrasound positive for hepatic steatosis. Patient high risk of developing cirrhosis due to excessive alcohol abuse. Liver enzymes trending down. Platelets stable. PT/INR pending. Hepatitis panel pending. Liver chemistries tomorrow. Monitor for bleeding. Outpatient gastroenterology follow-up. (9) Tibia/fibula fracture Qualifiers: Encounter type: initial encounter Fracture type: closed Laterality: right Qualified Code(s): S82.201A - Unspecified fracture of shaft of right tibia, initial encounter for closed fracture; S82.401A - Unspecified fracture of shaft of right fibula, initial encounter for closed fracture Is this a current diagnosis for this admission?: Yes Plan: Traumatic fracture. Neurovascularly intact. Orthopedic surgery on board. No surgical intervention at this point. Nonweightbearing right lower extremity until further evaluation in the office recommended. Outpatient follow-up with Dr. Wagoner within 5 days.
[2019-11-25 11:04] LABS: INTERNATIONAL RATION (INR) 1.14; PROTHROMBIN TIME 14.6 SEC (11.4-15.4)
[2019-11-25] MEDS ORDERED: ONDANSETRON HCL INJ/PF 4 MG/2 ML SDV IV PRN (15:00)
[2019-11-25] MEDS ORDERED: LISINOPRIL 5 MG TABLET PO ONE (16:30)
[2019-11-25] MEDS: CLONIDINE HCL 0.2 MG TABLET PO SCH (22:09)
[2019-11-25] MEDS: TRAZODONE HCL 50 MG TABLET PO SCH (22:11)
[2019-11-26 05:12] LABS: HEMATOCRIT 45.4 % (37.9-51.0); HEMOGLOBIN 15.7 g/dL (13.5-17.0); MEAN CORPUSCULAR HEMOGLOBIN 35.6 pg (27.0-33.4); MEAN CORPUSCULAR HGB CONC 34.6 g/dL (32.0-36.0); MEAN CORPUSCULAR VOLUME 103 fl (80-97); PLATELET COUNT 106 10^3/uL (150-450); RED BLOOD COUNT 4.41 10^6/uL (4.35-5.55); RED CELL DISTRIBUTION WIDTH 16.6 % (11.5-14.0); WHITE BLOOD COUNT 8.2 10^3/uL (4.0-10.5)
[2019-11-26 05:37] LABS: HEPATITS B SURFACE ANTIGEN Negative (Negative)
[2019-11-26] MEDS: DEXTROSE 5%-NORMAL SALINE 1,000 ML IV PRN ×3 (05:37→22:33)
[2019-11-26 05:39] LABS: ALBUMIN 3.3 g/dL (3.5-5.0); ALKALINE PHOSPHATASE 97 U/L (38-126); ANION GAP 6 (5-19); ASPARTATE AMINO TRANSFERASE 117 U/L (17-59); BILIRUBIN,DIRECT 1.1 mg/dL (0.0-0.4); BILIRUBIN,TOTAL 2.4 mg/dL (0.2-1.3); BLOOD UREA NITROGEN 3 mg/dL (7-20); CALCIUM 8.8 mg/dL (8.4-10.2); CARBON DIOXIDE 26 mmol/L (22-30); CHLORIDE 105 mmol/L (98-107); GLUCOSE 98 mg/dL (75-110); POTASSIUM 3.8 mmol/L (3.6-5.0); TOTAL PROTEIN 6.5 g/dL (6.3-8.2)
[2019-11-26] MEDS: PANTOPRAZOLE SODIUM 40 MG TABLET.DR PO SCH ×2 (05:41→17:43)
[2019-11-26] MEDS: DIAZEPAM INJ 10 MG/2 ML DISP.SYRIN IV SCH ×3 (05:42→21:40)
[2019-11-26] MEDS: HEPARIN SOD (PORCINE) 5,000 UNIT/ML 1 ML VIAL SUBCUT SCH ×3 (05:42→21:40)
[2019-11-26] MEDS: MORPHINE SULFATE 10 MG/ML INJ IV PRN ×3 (07:43→19:46)
[2019-11-26] MEDS: IPRATROPIUM BROMIDE 0.02% NEB 0.5 MG/2.5 ML AMPUL NEB SCH ×3 (07:49→20:04)
[2019-11-26] MEDS: LEVALBUTEROL HCL NEB 0.63 MG/3 ML AMPUL NEB SCH ×3 (07:49→20:04)
[2019-11-26] MEDS: FOLIC ACID 1 MG TABLET PO SCH (09:24)
[2019-11-26] MEDS: VENLAFAXINE HCL 37.5 MG CAP.SR.24H PO SCH ×2 (09:24→21:39)
[2019-11-26] MEDS: PREDNISONE 20 MG TABLET PO SCH (09:24)
[2019-11-26] MEDS: NICOTINE 7 MG/24 HR PATCH.TD24 TD SCH (09:25)
[2019-11-26] MEDS: THIAMINE HCL 100 MG TABLET PO SCH (09:25)
[2019-11-26] MEDS: LISINOPRIL 5 MG TABLET PO SCH (09:25)
[2019-11-26] MEDS: BUSPIRONE HCL 10 MG TABLET PO SCH ×2 (09:50→21:39)
--- NOTE | 2019-11-26 13:00 | PDOC PROGRESS REPORT ---
Subjective Progress Note for:: 11/26/19 Reason For Visit: ALCOHL INTOXICATION RIGHT LOWER EXTREMITY FRACTURE 11/26/2019 Admitted for alcohol intoxication, fractured fibula and malleolar fracture. Physical Exam Vital Signs: Temp Pulse Resp BP Pulse Ox 97.6 F 79 17 142/89 H 96 11/26/19 11:36 11/26/19 11:36 11/26/19 11:36 11/26/19 11:36 11/26/19 11:36 Intake & Output 11/25/19 11/26/19 11/27/19 06:59 06:59 06:59 Intake Total 2901.2 6168 Output Total 1900 6020 Balance 1001.2 148 Weight 101.3 kg 101.9 kg General appearance: PRESENT: no acute distress, other - Currently lying in bed, voicing no complaints Respiratory exam: PRESENT: clear to auscultation refugio. ABSENT: rales, rhonchi, wheezes Cardiovascular exam: PRESENT: RRR. ABSENT: diastolic murmur, rubs, systolic murmur Extremities exam: PRESENT: other - Cough splint in the right lower extremity Neurological exam: PRESENT: alert, awake, oriented to person, oriented to place, oriented to time, oriented to situation, CN II-XII grossly intact. ABSENT: motor sensory deficit Psychiatric exam: PRESENT: appropriate affect, normal mood. ABSENT: homicidal ideation, suicidal ideation Results Laboratory Results: 11/26/19 04:14 11/26/19 04:14 11/26/19 11/26/19 04:14 04:14 WBC 8.2 RBC 4.41 Hgb 15.7 Hct 45.4 MCV 103 H MCH 35.6 H MCHC 34.6 RDW 16.6 H Plt Count 106 L Sodium 136.7 L Potassium 3.8 Chloride 105 Carbon Dioxide 26 Anion Gap 6 BUN 3 L Creatinine 0.75 Est GFR ( Amer) > 60 Glucose 98 Calcium 8.8 Magnesium 1.9 Total Bilirubin 2.4 H AST 117 H Alkaline Phosphatase 97 Total Protein 6.5 Albumin 3.3 L Impressions: Ankle X-Ray 11/24/19 12:56 IMPRESSION: Fracture medial malleolus. Tibia/Fibula X-Ray 11/24/19 12:56 IMPRESSION: Maisonneuve fracture. Abdomen Ultrasound 11/24/19 16:16 IMPRESSION: FATTY INFILTRATION OF THE LIVER. Mild hepatomegaly. No acute findings otherwise. Assessment and Plan - Diagnosis (2) Elevated liver enzymes Is this a current diagnosis for this admission?: Yes (3) Hypertension Is this a current diagnosis for this admission?: Yes (4) PTSD (post-traumatic stress disorder) Is this a current diagnosis for this admission?: Yes (5) TBI (traumatic brain injury) Qualifiers: Encounter type: initial encounter Is this a current diagnosis for this admission?: Yes (6) Tibia/fibula fracture Qualifiers: Encounter type: initial encounter Fracture type: closed Laterality: right Qualified Code(s): S82.201A - Unspecified fracture of shaft of right tibia, initial encounter for closed fracture; S82.401A - Unspecified fracture of shaft of right fibula, initial encounter for closed fracture Is this a current diagnosis for this admission?: Yes (7) Tobacco abuse Is this a current diagnosis for this admission?: Yes (8) Alcohol abuse Is this a current diagnosis for this admission?: Yes - Plan Summary Summary: 11/26/2019 Patient has crutches in his room but has not been up on them yet. Per orthopedics patient is to be nonweightbearing for the right lower extremity. Will consult physical therapy to help him with his crutches so he can learn how to ambulate Meantime I have tried to streamline some of his medications Vital signs today are stable temperature 97.9 pulse between 50 and 90 blood pressure 129/72 labs are all normal Orthopedics would like to see him 5 days after discharge Patient is very pleasant today - Time Time Spent with patient: 25-34 minutes
[2019-11-26] MEDS: OXYCODONE-ACETAMINOPHEN 5-325 MG TABLET PO PRN ×2 (14:40→21:37)
[2019-11-26] MEDS: CLONIDINE HCL 0.2 MG TABLET PO SCH (21:39)
[2019-11-26] MEDS: TRAZODONE HCL 50 MG TABLET PO SCH (21:39)
--- NOTE | 2019-11-26 22:00 | PDOC PROGRESS REPORT ---
Subjective Progress Note for:: 11/26/19 Subjective:: Patient is doing well today. Initially discharge tomorrow. He has no acute events or complications no new symptoms. Reason For Visit: ALCOHL INTOXICATION RIGHT LOWER EXTREMITY FRACTURE Physical Exam Vital Signs: Temp Pulse Resp BP Pulse Ox 98.1 F 77 16 152/96 H 98 11/26/19 20:14 11/26/19 20:14 11/26/19 20:14 11/26/19 20:14 11/26/19 20:14 Intake & Output 11/25/19 11/26/19 11/27/19 06:59 06:59 06:59 Intake Total 2901.2 6168 1900 Output Total 1900 6020 2450 Balance 1001.2 148 -550 Weight 101.3 kg 101.9 kg Physical Exam: All as above aside from that noted in the HPI and the following: Right lower extremity -Pulses 2+ distally -Compartments soft -Right lower extremity in a posterior splint -Sensation grossly intact to L3-4-5 S1 -Motor grossly intact to EHL TA, and quad Results Laboratory Results: 11/26/19 04:14 11/26/19 04:14 11/26/19 11/26/19 04:14 04:14 WBC 8.2 RBC 4.41 Hgb 15.7 Hct 45.4 MCV 103 H MCH 35.6 H MCHC 34.6 RDW 16.6 H Plt Count 106 L Sodium 136.7 L Potassium 3.8 Chloride 105 Carbon Dioxide 26 Anion Gap 6 BUN 3 L Creatinine 0.75 Est GFR ( Amer) > 60 Glucose 98 Calcium 8.8 Magnesium 1.9 Total Bilirubin 2.4 H AST 117 H Alkaline Phosphatase 97 Total Protein 6.5 Albumin 3.3 L Impressions: Ankle X-Ray 11/24/19 12:56 IMPRESSION: Fracture medial malleolus. Tibia/Fibula X-Ray 11/24/19 12:56 IMPRESSION: [place]uve fracture. Abdomen Ultrasound 11/24/19 16:16 IMPRESSION: FATTY INFILTRATION OF THE LIVER. Mild hepatomegaly. No acute findings otherwise. Assessment & Plan - Diagnosis (1) Bimalleolar fracture of right ankle Is this a current diagnosis for this admission?: Yes Plan: I discussed the plan with the patient. He is to see me in the office within the next week. We will place him in a well molded cast at that time. He is to be nonweightbearing with a posterior splint until then. -I will put a prescription in for a knee scooter. - Time Time Spent with patient: Less than 15 minutes
[2019-11-27] MEDS: DEXTROSE 5%-NORMAL SALINE 1,000 ML IV PRN (05:23)
[2019-11-27] MEDS: HEPARIN SOD (PORCINE) 5,000 UNIT/ML 1 ML VIAL SUBCUT SCH (06:01)
[2019-11-27] MEDS: MORPHINE SULFATE 10 MG/ML INJ IV PRN (06:42)
[2019-11-27] MEDS: PANTOPRAZOLE SODIUM 40 MG TABLET.DR PO SCH (06:43)
[2019-11-27] MEDS: DIAZEPAM INJ 10 MG/2 ML DISP.SYRIN IV SCH (06:43)
[2019-11-27] MEDS: LEVALBUTEROL HCL NEB 0.63 MG/3 ML AMPUL NEB SCH (07:48)
[2019-11-27] MEDS: IPRATROPIUM BROMIDE 0.02% NEB 0.5 MG/2.5 ML AMPUL NEB SCH (07:48)
[2019-11-27 08:25] LABS: HEPATITIS C VIRUS ANTIBODY 0.1 s/co ratio (0.0-0.9)
[2019-11-27] MEDS: NICOTINE 7 MG/24 HR PATCH.TD24 TD SCH (11:05)
[2019-11-27] MEDS: VENLAFAXINE HCL 37.5 MG CAP.SR.24H PO SCH (11:05)
[2019-11-27] MEDS: FOLIC ACID 1 MG TABLET PO SCH (11:06)
[2019-11-27] MEDS: THIAMINE HCL 100 MG TABLET PO SCH (11:06)
[2019-11-27] MEDS: BUSPIRONE HCL 10 MG TABLET PO SCH (11:06)
[2019-11-27] MEDS: LISINOPRIL 5 MG TABLET PO SCH (11:07)
[2019-11-27] MEDS: PREDNISONE 20 MG TABLET PO SCH (11:07)
[2019-11-27 11:17] VITALS: BP 152/78
--- NOTE | 2019-11-27 16:42 | PDOC DISCHARGE SUMMARY ---
Impression - Admit/DC Date/PCP Admission Date/Primary Care Provider: 11/24/19 15:[facility] Discharge Date: 11/27/19 - Discharge Diagnosis (1) Bimalleolar fracture of right ankle Is this a current diagnosis for this admission?: Yes (2) Elevated liver enzymes Is this a current diagnosis for this admission?: Yes (3) Hypertension Is this a current diagnosis for this admission?: Yes (4) PTSD (post-traumatic stress disorder) Is this a current diagnosis for this admission?: Yes (5) TBI (traumatic brain injury) Is this a current diagnosis for this admission?: Yes (6) Tibia/fibula fracture Is this a current diagnosis for this admission?: Yes (7) Tobacco abuse Is this a current diagnosis for this admission?: Yes (8) Alcohol abuse Is this a current diagnosis for this admission?: Yes - Assessment Summary: 11/26/2019 Patient has crutches in his room but has not been up on them yet. Per orthopedics patient is to be nonweightbearing for the right lower extremity. Will consult physical therapy to help him with his crutches so he can learn how to ambulate Meantime I have tried to streamline some of his medications Vital signs today are stable temperature 97.9 pulse between 50 and 90 blood pressure 129/72 labs are all normal Orthopedics would like to see him 5 days after discharge Patient is very pleasant today 11/27/2019 Patient ambulated yesterday and today with crutches, nonweightbearing on his fracture. Physical therapy worked with him and was satisfied that he was safe to be discharged home with crutches Patient being sent home with a prescription for thiamine lisinopril NicoDerm folic acid Effexor and clonidine Patient is to follow-up with orthopedics either tomorrow or Monday for a hard cast Patient was encouraged to stop drinking alcohol - Additional Information Resuscitation Status: Full Code Discharge Diet: As Tolerated Discharge Activity: Balance Activity w/Rest, Bedrest, No Driving, Keep Legs Elevated Referrals: LORENZO BABCOCK PA-C [PHYSICIAN CREDIT CONTROL ADMINISTRATOR] - 12/06/19 2:15 pm EMMIE KELLY JR, DO [ACTIVE PROVISIONAL STAFF] - 12/05/19 10:25 am (non weight bearing to right foot until follow up appointment. keep soft splint on until appointment, then will be fitted for molded splint at appointment. call for appointment within 5 days) Prescriptions: Clonidine HCl [Catapres 0.2 mg Tablet] 0.2 mg PO QHS 30 Days #30 tablet Venlafaxine HCl ER [Effexor Xr 37.5 mg Cap.sr] 37.5 mg PO Q12 30 Days #60 cap.sr.24h Folic Acid [Folvite 1 mg Tablet] 1 mg PO DAILY 30 Days #30 tablet Nicotine [Nicoderm 7 mg/24 Hr Transdermal Patch] 1 each TD DAILY 30 Days #30 patch.td24 Lisinopril [Prinivil 5 mg Tablet] 5 mg PO DAILY 30 Days #30 tablet Thiamine HCl [Thiamine 100 mg Tablet] 100 mg PO DAILY 30 Days #30 tablet Home Medications: Alprazolam 0.25 mg PO DAILYP PRN MDD 0.5 MG 11/24/19 Zolpidem Tartrate [Ambien 5 mg Tablet] 5 mg PO HSP PRN 11/24/19 Clonidine HCl [Catapres 0.2 mg Tablet] 0.2 mg PO QHS 30 Days #30 tablet 11/27/19 Folic Acid [Folvite 1 mg Tablet] 1 mg PO DAILY 30 Days #30 tablet 11/27/19 Lisinopril [Prinivil 5 mg Tablet] 5 mg PO DAILY 30 Days #30 tablet 11/27/19 Nicotine [Nicoderm 7 mg/24 Hr Transdermal Patch] 1 each TD DAILY 30 Days #30 patch.td24 11/27/19 Prednisone [Deltasone 20 mg Tablet] 40 mg PO DAILY tablet 11/27/19 Thiamine HCl [Thiamine 100 mg Tablet] 100 mg PO DAILY 30 Days #30 tablet 11/27/19 Venlafaxine HCl ER [Effexor Xr 37.5 mg Cap.sr] 37.5 mg PO Q12 30 Days #60 cap.sr.24h 11/27/19 History of Present Illiness History of Present Illness: FANG UPTON is a 34 year old male Physical Exam Vital Signs: Temp Pulse Resp BP Pulse Ox 97.9 F 81 18 152/78 H 95 11/27/19 11:15 11/27/19 11:15 11/27/19 11:15 11/27/19 11:15 11/27/19 11:15 Intake & Output 11/26/19 11/27/19 11/28/19 06:59 06:59 06:59 Intake Total 8076 4471 120 Output Total 6091 9774 275 Balance 148 425 -155 Weight 101.9 kg 101.6 kg Results Laboratory Results: WBC 8.2 10^3/uL (4.0-10.5) 11/26/19 04:14 RBC 4.41 10^6/uL (4.35-5.55) 11/26/19 04:14 Hgb 15.7 g/dL (13.5-17.0) 11/26/19 04:14 Hct 45.4 % (37.9-51.0) 11/26/19 04:14 MCV 103 fl (80-97) H 11/26/19 04:14 MCH 35.6 pg (27.0-33.4) H 11/26/19 04:14 MCHC 34.6 g/dL (32.0-36.0) 11/26/19 04:14 RDW 16.6 % (11.5-14.0) H 11/26/19 04:14 Plt Count 106 10^3/uL (150-450) L 11/26/19 04:14 Lymph % (Auto) 34.0 % (13-45) 11/25/19 03:58 [place] % (Auto) 9.5 % (3-13) 11/25/19 03:58 Eos % (Auto) 5.4 % (0-6) 11/25/19 03:58 Baso % (Auto) 0.5 % (0-2) 11/25/19 03:58 Absolute Neuts (auto) 3.2 10^3/uL (1.7-8.2) 11/25/19 03:58 Absolute Lymphs (auto) 2.1 10^3/uL (0.5-4.7) 11/25/19 03:58 Absolute Monos (auto) 0.6 10^3/uL (0.1-1.4) 11/25/19 03:58 Absolute Eos (auto) 0.3 10^3/uL (0.0-0.6) 11/25/19 03:58 Absolute Basos (auto) 0.0 10^3/uL (0.0-0.2) 11/25/19 03:58 Seg Neutrophils % 50.6 % (42-78) 11/25/19 03:58 PT 14.6 SEC (11.4-15.4) 11/25/19 10:07 INR 1.14 11/25/19 10:07 Sodium 136.7 mmol/L (137-145) L 11/26/19 04:14 Potassium 3.8 mmol/L (3.6-5.0) 11/26/19 04:14 Chloride 105 mmol/L (98-107) 11/26/19 04:14 Carbon Dioxide 26 mmol/L (22-30) 11/26/19 04:14 Anion Gap 6 (5-19) 11/26/19 04:14 BUN 3 mg/dL (7-20) L 11/26/19 04:14 Creatinine 0.75 mg/dL (0.52-1.25) 11/26/19 04:14 Est GFR ( Amer) > 60 (>60) 11/26/19 04:14 Est GFR (MDRD) Non-Af > 60 (>60) 11/26/19 04:14 Glucose 98 mg/dL (75-110) 11/26/19 04:14 Hemoglobin A1c % 5.7 % (4.7-6.0) 11/25/19 03:58 Calcium 8.8 mg/dL (8.4-10.2) 11/26/19 04:14 Magnesium 1.9 mg/dL (1.6-2.3) 11/26/19 04:14 Total Bilirubin 2.4 mg/dL (0.2-1.3) H 11/26/19 04:14 Direct Bilirubin 1.1 mg/dL (0.0-0.4) H 11/26/19 04:14 Neonat Total Bilirubin Not Reportable 11/26/19 04:14 Neonat Direct Bilirubin Not Reportable 11/26/19 04:14 Neonat Indirect Bili Not Reportable 11/26/19 04:14 AST 117 U/L (17-59) H 11/26/19 04:14 ALT 80 U/L (<50) 11/26/19 04:14 Alkaline Phosphatase 97 U/L (38-126) 11/26/19 04:14 Total Protein 6.5 g/dL (6.3-8.2) 11/26/19 04:14 Albumin 3.3 g/dL (3.5-5.0) L 11/26/19 04:14 TSH 1.39 uIU/mL (0.47-4.68) 11/24/19 13:13 Free T4 0.97 ng/dL (0.78-2.19) 11/24/19 13:13 Urine Color YELLOW 11/24/19 13:13 Urine Appearance CLEAR 11/24/19 13:13 Urine pH 6.0 (5.0-9.0) 11/24/19 13:13 Ur Specific [place] 1.002 11/24/19 13:13 Urine Protein NEGATIVE mg/dL (NEGATIVE) 11/24/19 13:13 Urine Glucose (UA) 150 mg/dL (NEGATIVE) H 11/24/19 13:13 Urine Ketones NEGATIVE mg/dL (NEGATIVE) 11/24/19 13:13 Urine Blood NEGATIVE (NEGATIVE) 11/24/19 13:13 Urine Nitrite NEGATIVE (NEGATIVE) 11/24/19 13:13 Urine Bilirubin NEGATIVE (NEGATIVE) 11/24/19 13:13 Urine Urobilinogen NEGATIVE mg/dL (<2.0) 11/24/19 13:13 Ur Leukocyte Esterase NEGATIVE (NEGATIVE) 11/24/19 13:13 Urine RBC (Auto) 0 /HPF 11/24/19 13:13 Urine Ascorbic Acid NEGATIVE (NEGATIVE) 11/24/19 13:13 Salicylates < 1.0 mg/dL (2.0-20.0) L 11/24/19 13:13 Urine Opiates Screen NEGATIVE 11/24/19 13:13 Urine Methadone Screen NEGATIVE 11/24/19 13:13 Acetaminophen < 10 ug/mL (10-30) L 11/24/19 13:13 Ur Barbiturates Screen NEGATIVE 11/24/19 13:13 Ur Phencyclidine Scrn NEGATIVE 11/24/19 13:13 Ur Amphetamines Screen NEGATIVE 11/24/19 13:13 U Benzodiazepines Scrn NEGATIVE 11/24/19 13:13 Urine Cocaine Screen NEGATIVE 11/24/19 13:13 U Marijuana (THC) Screen NEGATIVE 11/24/19 13:13 Serum Alcohol 188 mg/dL (NONE DETECTED) 11/24/19 13:13 Hepatitis A IgM Ab Negative (Negative) 11/24/19 17:15 Hep Bs Antigen Negative (Negative) 11/24/19 17:15 Hep B Core IgM Ab Negative (Negative) 11/24/19 17:15 Hepatitis C Antibody 0.1 s/co ratio (0.0-0.9) 11/24/19 17:15 Impressions: Ankle X-Ray 11/24/19 12:56 IMPRESSION: Fracture medial malleolus. Tibia/Fibula X-Ray 11/24/19 12:56 IMPRESSION: [place] fracture. Abdomen Ultrasound 11/24/19 16:16 IMPRESSION: FATTY INFILTRATION OF THE LIVER. Mild hepatomegaly. No acute findings otherwise. Stroke Is this a Stroke Patient?: No Acute Heart Failure - Is this a Heart Failure Patient?: No
== END 2019-11-27 11:30 | disposition home or self-care (01) | DRG 563 ==
LOC: ER 12:20 → EH 15:40 → 3N 18:10
PROVIDERS: ADMIT Internal Medicine; ATTEND Internal Medicine
DX: S82.861A Displaced Maisonneuve's fracture of right leg, initial encounter for closed fracture (principal); J44.1 Chronic obstructive pulmonary disease with (acute) exacerbation; F10.230 Alcohol dependence with withdrawal, uncomplicated; S82.54XA Nondisplaced fracture of medial malleolus of right tibia, initial encounter for closed fracture; W17.89XA Other fall from one level to another, initial encounter; R94.5 Abnormal results of liver function studies; I10 Essential (primary) hypertension; F43.10 Post-traumatic stress disorder, unspecified; E78.5 Hyperlipidemia, unspecified; F32.9 Major depressive disorder, single episode, unspecified; F17.210 Nicotine dependence, cigarettes, uncomplicated; F12.90 Cannabis use, unspecified, uncomplicated; Y90.6 Blood alcohol level of 120-199 mg/100 ml; E86.0 Dehydration; E66.9 Obesity, unspecified; Z87.820 Personal history of traumatic brain injury; Z79.52 Long term (current) use of systemic steroids; Z79.899 Other long term (current) drug therapy; Z88.8 Allergy status to other drugs, medicaments and biological substances; Z71.6 Tobacco abuse counseling; Z68.34 Body mass index [BMI] 34.0-34.9, adult; Z81.1 Family history of alcohol abuse and dependence
CPT/HCPCS: 36415; 76700; 80053; 80074; 80307; 81001; 83036; 83735; 84439; 84443; 85025; 85027; 85610; 93005; 93010; 96361; 96374; 96375; 99291; J0360; J1644; J2060; J2270; J2405; J3360; J3411; J3475; J3480; J3490; J7030; J7042; J7050; J7512; J7614

== ENCOUNTER 2019-12-10 10:31 | Day surgery (SDC) | payer BC, OTHER ==
[2019-12-09 12:20] LABS: ABSOLUTE BASOPHILS # (AUTO) 0.2 10^3/uL (0.0-0.2); ABSOLUTE EOSINOPHILS # (AUTO) 0.4 10^3/uL (0.0-0.6); RED CELL DISTRIBUTION WIDTH 15.9 % (11.5-14.0); TOTAL CELLS COUNTED % (AUTO) 100 %
[2019-12-09 12:32] LABS: ABSOLUTE LYMPHOCYTES (AUTO) 2.2 10^3/uL (0.5-4.7); ABSOLUTE MONOCYTES (AUTO) 1.1 10^3/uL (0.1-1.4); BASOPHILS % (AUTO) 1.5 % (0-2); EOSINOPHILS % (AUTO) 3.6 % (0-6); HEMOGLOBIN 16.9 g/dL (13.5-17.0); LYMPHOCYTES % (AUTO) 18.8 % (13-45); MEAN CORPUSCULAR HEMOGLOBIN 34.9 pg (27.0-33.4); MEAN CORPUSCULAR HGB CONC 34.6 g/dL (32.0-36.0); MEAN CORPUSCULAR VOLUME 101 fl (80-97); MONOCYTES % (AUTO) 9.2 % (3-13); PLATELET COUNT 385 10^3/uL (150-450); RED BLOOD COUNT 4.85 10^6/uL (4.35-5.55); SEGMENTED NEUTROPHILS % (AUTO) 66.9 % (42-78); WHITE BLOOD COUNT 11.9 10^3/uL (4.0-10.5)
[2019-12-09 12:43] LABS: ANION GAP 9 (5-19); BLOOD UREA NITROGEN 9 mg/dL (7-20); CALCIUM 10.1 mg/dL (8.4-10.2); CARBON DIOXIDE 27 mmol/L (22-30); CHLORIDE 103 mmol/L (98-107); GLUCOSE 84 mg/dL (75-110); POTASSIUM 4.6 mmol/L (3.6-5.0)
--- NOTE | 2019-12-09 15:15 | EKG REPORT ---
SEVERITY:- BORDERLINE ECG - SINUS RHYTHM PROBABLE LEFT ATRIAL ABNORMALITY : Confirmed by: Alena Donnelly MD 09-Dec-2019 15:14:06
[~2019-12-10 10:31] MED LIST: ACETAMINOPHEN 325 MG TABLET PO PRN; CEFAZOLIN SODIUM 2 GM in DEXTROSE 5%-WATER 100 ML IV PRN; GLYCOPYRROLATE 1 MG/5 ML VIAL ONE; LACTATED RINGERS 1000 ML IV PRN; LIDOCAINE 0.5% INJ-PF (5 MG/ML) 50 ML SDV SUBCUT PRN; NEOSTIGMINE METHYLSULFATE 10 MG/10 ML VIAL ONE; ONDANSETRON HCL INJ/PF 4 MG/2 ML SDV ONE; OXYCODONE HCL SR 10 MG TABLET PO PRN; PHENYLEPHRINE HCL INJ/PF 10 MG/1 ML SDV ONE
[2019-12-10] MEDS ORDERED: OXYCODONE HCL SR 10 MG TABLET PO ONE (11:21)
[2019-12-10] MEDS ORDERED: ACETAMINOPHEN 325 MG TABLET ONE (11:21)
[2019-12-10] MEDS ORDERED: ONDANSETRON HCL INJ/PF 4 MG/2 ML SDV ONE (11:35)
[2019-12-10] MEDS ORDERED: PROPOFOL INJ 200 MG/20 ML VIAL IV ONE (11:35)
[2019-12-10] MEDS ORDERED: DEXAMETHASONE SOD PHOSPHATE INJ 4 MG/1 ML VIAL ONE ×2 (11:35→12:11)
[2019-12-10] MEDS ORDERED: MIDAZOLAM 2 MG/2 ML INJ ONE (11:35)
[2019-12-10] MEDS ORDERED: FENTANYL CITRATE INJ/PF 250 MCG/5 ML AMPULE ONE (11:35)
[2019-12-10] MEDS ORDERED: ALBUTEROL SULFATE 0.083% NEB 2.5 MG/3 ML AMPUL NEB ONE (11:44)
[2019-12-10] MEDS ORDERED: BUPIVACAINE HCL 0.5 % INJ/PF 30 ML SDV ONE (11:45)
[2019-12-10] MEDS ORDERED: LIDOCAINE 1% INJ-PF (10 MG/ML) 30 ML SDV ONE (11:45)
[2019-12-10] MEDS ORDERED: LIDOCAINE 2% INJ-PF (20 MG/ML) 10 ML AMPUL ONE (12:11)
[2019-12-10] MEDS ORDERED: DIPHENHYDRAMINE HCL 50 MG/ML VIAL IV PRN (12:46)
[2019-12-10] MEDS ORDERED: MORPHINE SULFATE 10 MG/ML INJ IV PRN (12:46)
[2019-12-10] MEDS ORDERED: MEPERIDINE HCL/PF INJ 25 MG/1 ML DISP.SYRIN IV PRN (12:46)
[2019-12-10] MEDS ORDERED: OXYCODONE-ACETAMINOPHEN 5-325 MG TABLET PO PRN ×2 (12:46)
[2019-12-10] MEDS ORDERED: PROMETHAZINE HCL INJ 25 MG/1 ML VIAL IV PRN ×2 (12:46)
[2019-12-10] MEDS ORDERED: FENTANYL CITRATE INJ/PF 100 MCG/2 ML AMPUL IV PRN ×3 (12:46)
[2019-12-10] MEDS ORDERED: DEXMEDETOMIDINE INJ 80 MCG/20 ML VIAL IV ONE (12:58)
[2019-12-10] MEDS ORDERED: HYDROMORPHONE HCL INJ/PF 2 MG/ML AMPULE ONE (14:00)
[2019-12-10] MEDS ORDERED: LIDOCAINE 2% INJ (20 MG/ML) 20 ML MDV ONE (14:34)
[2019-12-10] MEDS ORDERED: ROPIVACAINE HCL 0.5% INJ/PF (5 MG/1 ML) 30 ML SDV ONE (14:34)
[2019-12-10] MEDS ORDERED: LIDOCAINE 2%/EPINEPHRINE INJ 20 ML VIAL ONE (14:35)
[2019-12-10] MEDS ORDERED: LIDOCAINE 1%/EPINEPHRINE INJ 20 ML VIAL ONE (14:37)
--- NOTE | 2019-12-10 14:48 | Operative Report ---
Operative Report DATE OF SURGERY: 12/10/19 PREOPERATIVE DIAGNOSIS: Right trimalleolar ankle fracture equivalent POSTOPERATIVE DIAGNOSIS: Right trimalleolar ankle fracture equivalent OPERATION: Right trimalleolar ankle fracture open reduction internal fixation SURGEON: EMMIE KELLY JR ANESTHESIA: GA COMPLICATIONS: None PROCEDURE: Preoperatively the cast was removed and preop holding, the hair was clipped and skin was scrubbed in preop. The skin was deemed to be appropriate in regards to the swelling and ecchymosis to allow for surgery. They were given 2 g of Ancef preoperatively. They were brought to the operating suite and placed under general anesthesia. They were prepped and draped in standard sterile fashion. After an appropriate timeout the limb was exsanguinated with Esmarch and tourniquet was inflated. The fracture was evaluated under fluoroscopy, the incision was then planned and made to the medial malleolus. Careful dissection was performed until the fracture was exposed. The fracture was then debrided and approximated, after a cortical read was achieved, a large pointed reduction forceps was used to hold reduction. A drill was utilized both anterior and posterior to the reduction forceps in order to place 2 screws in the medial malleolus. This was evaluated under fluoroscopy, however due to the approximation of the articular shoulder we decided to redirect the screws. We proceeded with a posterior K wire followed by the application of a cannulated 44 mm screw. We then redrilled the anterior screw with a 2.6 drill bit followed by a 58 mm 3.5 titanium screw. This was all performed with the assistance of fluoroscopy. After excellent reduction and plate application all screws were tightened appropriately. The periosteum and deep fascial layer was closed with 2-0 Monocryl in a running fashion. The wound was copiously irrigated with dilute Betadine solution and the subcutaneous tissue was closed with inverted, interrupted 2-0 Monocryl followed by a running 3-0 Monocryl in the skin. After this we turned our attention to the lateral malleolus. A external rotation stress test was performed under fluoroscopy which confirmed a syndesmotic injury with substantial tibiofibular widening. The decision was made to proceed with a Arthrex tight rope from the lateral side. The syndesmosis was reduced with positioning of the talus in the mortise followed by application of a pointed reduction forceps from the lateral malleolus to the mid medial aspect of the tibia. After tension was placed into this for soft we proceeded to make an incision on the lateral aspect under fluoroscopy. We drilled across the 4 cortices under fluoroscopic guidance, followed by the application of the tension band construct, followed by tensioning the construct and then removal of the sutures and pointed reduction forcep. Final x-rays were then taken. The wounds were copiously irrigated with sterile dilute Betadine solution. 2-0 Monocryl was then utilized subcutaneously followed by a running 3-0 Monocryl in the skin. Local anesthesia was then injected into the surrounding area. Xeroform was placed over the wounds followed by 4 x 4's soft roll, fiberglass posterior U type splint and Abilio wrap. The patient tolerated the procedure well and was transferred to the PACU in stable condition.
--- NOTE | 2019-12-10 15:03 | RADIOLOGY REPORT (SQ) ---
EXAM DESCRIPTION: NO CHG FLUORO; ANKLE RIGHT COMPLETE COMPLETED DATE/TIME: 12/10/2019 2:40 pm REASON FOR STUDY: ORIF RIGHT ANKLE ASST WITH FLUORO IN OR M84.471A PATHOLOGICAL FRACTURE, RIGHT ANK LE, INIT ENCNTR FOR COMPARISON: None. FLUOROSCOPY TIME: 1.1 minutes 5 images saved to PACS. TECHNIQUE: Intra-operative images acquired during surgical procedure to evaluate progress. NUMBER OF IMAGES: 5 LIMITATIONS: None. FINDINGS: Fluoroscopic images from screw fixation of medial malleolar fracture. IMPRESSION: IMAGE(S) OBTAINED DURING PROCEDURE. COMMENT: Quality ID [id number]: Final reports for procedures using fluoroscopy that document radiation exp osure indices, or exposure time and number of fluorographic images (if radiation exposure indices are not available) Please consult full operative report of the attending physician for description of the procedure. TECHNICAL DOCUMENTATION: JOB ID: [id number] [employer]- All Rights Reserved Reading location - IP/workstation name: [email or web address]
--- NOTE | 2019-12-10 15:03 | RADIOLOGY REPORT (SQ) ---
EXAM DESCRIPTION: NO CHG FLUORO; ANKLE RIGHT COMPLETE COMPLETED DATE/TIME: 12/10/2019 2:40 pm REASON FOR STUDY: ORIF RIGHT ANKLE ASST WITH FLUORO IN OR M84.471A PATHOLOGICAL FRACTURE, RIGHT ANK LE, INIT ENCNTR FOR COMPARISON: None. FLUOROSCOPY TIME: 1.1 minutes 5 images saved to PACS. TECHNIQUE: Intra-operative images acquired during surgical procedure to evaluate progress. NUMBER OF IMAGES: 5 LIMITATIONS: None. FINDINGS: Fluoroscopic images from screw fixation of medial malleolar fracture. IMPRESSION: IMAGE(S) OBTAINED DURING PROCEDURE. COMMENT: Quality ID [id number]: Final reports for procedures using fluoroscopy that document radiation exp osure indices, or exposure time and number of fluorographic images (if radiation exposure indices are not available) Please consult full operative report of the attending physician for description of the procedure. TECHNICAL DOCUMENTATION: JOB ID: [id number] [employer]- All Rights Reserved Reading location - IP/workstation name: [email or web address]
--- NOTE | 2019-12-10 15:24 | RADIOLOGY REPORT (SQ) ---
EXAM DESCRIPTION: ANKLE RIGHT COMPLETE COMPLETED DATE/TIME: 12/10/2019 3:07 pm REASON FOR STUDY: post op M84.471A PATHOLOGICAL FRACTURE, RIGHT ANKLE, INIT ENCNTR FOR COMPARISON: 11/24/2019 NUMBER OF VIEWS: Three views. TECHNIQUE: AP, lateral, and oblique radiographic images acquired of the right ankle. LIMITATIONS: External cast. FINDINGS: Fixation of medial malleolar fracture with 2 orthopedic screws. Alignment is anatomic. IMPRESSION: Medial malleolar fracture status post ORIF. TECHNICAL DOCUMENTATION: JOB ID: [id number] [employer]- All Rights Reserved Reading location - IP/workstation name: [email or web address]
[2019-12-10 18:09] VITALS: BP 137/90
== END 2019-12-10 16:30 | disposition home or self-care (01) ==
LOC: OROUT 10:31
PROVIDERS: ATTEND Orthopaedic Surgery
DX: S82.851D Displaced trimalleolar fracture of right lower leg, subsequent encounter for closed fracture with routine healing (principal); X58.XXXD Exposure to other specified factors, subsequent encounter; M25.571 Pain in right ankle and joints of right foot; J44.9 Chronic obstructive pulmonary disease, unspecified; I10 Essential (primary) hypertension; I25.2 Old myocardial infarction; Z79.899 Other long term (current) drug therapy; Z88.8 Allergy status to other drugs, medicaments and biological substances
CPT/HCPCS: 27822; 93005; 36415; 85025; 80048; 73610; 93010; 01480; J2795; J2250; J3490 ×7; J0690; J1100; J3010; J2710; J1170; J2370; J2405; J7060; J2704